=== PATIENT | male | born 1940 | race Two or more races ===

== ENCOUNTER → 2016-05-23 | Outpatient (REF) | payer MEDICARE, OTHER | LOC: M SMT 13:04 | PROVIDERS: ATTEND Nurse Practitioner Women's Health | DX: R97.20 Elevated prostate specific antigen [PSA] (principal); N40.1 Benign prostatic hyperplasia with lower urinary tract symptoms | CPT/HCPCS: 81001; 87086; G0463 ==

== ENCOUNTER → 2016-05-30 | Outpatient (CLI) | payer MEDICARE, OTHER ==
[~2016-05-30] MED LIST: ASPI81TA85 PO; CARV12.5 PO; GLIM4TAB PO; MACR100C3 PO; METF500T PO; PROTPAK PO; RAMI10CA PO; SIMV40TA2 PO; VITA-121 PO; WARF-58 PO
--- NOTE | 2016-05-30 12:29 | REP ---
TRANSRECTAL PROSTATE ULTRASOUND: 05/30/2016. Technique: Images from transrectal ultrasound provided to Dr. White of the Urology division for transrectal needle biopsy of the prostate. Clinical history: Elevated PSA. Findings. Enlarged prostate measures 7.8 x 6.1 x 5.7 cm corresponding to 142 ml. Seminal vesicles are symmetric and grossly intact. The prostate is enlarged and heterogeneous. It has calcifications and cystic changes scattered within and a nodule on the left side 1.2 x 0.9 cm. Technologist documents 12 needle passes by the urologist for biopsy. Impression: 1. Enlarged prostate with heterogeneous appearance, calcifications, cystic changes and a 1.2 x 0.9 cm nodule in the left side of the gland. Signed by Judd Mccracken MD 05/30/2016 04:43 P
== END | disposition home or self-care (01) ==
LOC: M SMT PRO 09:19
PROVIDERS: ATTEND Nurse Practitioner Women's Health
DX: C61 Malignant neoplasm of prostate (principal); N41.8 Other inflammatory diseases of prostate; N42.89 Other specified disorders of prostate
CPT/HCPCS: 55700; 76872; 76942; G0416

== ENCOUNTER 2016-06-21 10:28 | Emergency (ER) | payer MEDICARE, OTHER ==
[~2016-06-21] VITALS: Ht 168.9 cm; Wt 86.2 kg
[2016-06-21] MEDS ORDERED: CARV12.5 PO (10:48)
[2016-06-21] MEDS ORDERED: SIMV40TA2 PO (10:48)
[2016-06-21] MEDS ORDERED: METF500T PO (10:48)
[2016-06-21] MEDS ORDERED: WARF-58 PO (10:48)
[2016-06-21] MEDS ORDERED: ASPI81TA85 PO (10:48)
[2016-06-21] MEDS ORDERED: RAMI10CA PO (10:48)
[2016-06-21] MEDS ORDERED: VITA-121 PO (10:48)
[2016-06-21] MEDS ORDERED: PROTPAK PO (10:48)
[2016-06-21] MEDS ORDERED: GLIM4TAB PO (10:48)
[2016-06-21 11:34] LABS: BASO # 0.1 K/mm3 (0.0-0.2); BASO % 1.2 % (0.0-1.0); EOS # 0.2 K/mm3 (0.0-0.50); EOS % 2.9 % (0.0-3.0); LARGE UNSTAINED CELL # 0.1 K/mm3 (0.0-0.4); LARGE UNSTAINED CELL % 2.2 % (0.0-4.0); LYMPH # 1.4 K/mm3 (1.5-4.5); MEAN CORPUSCULAR HEMOGLOBIN 27.6 pg (27.0-33.0); MEAN CORPUSCULAR HGB CONC 33.3 g/dl (32.0-36.5); MONO # 0.3 K/mm3 (0.0-0.8); MONO % 5.1 % (0.0-5.0); NEUTROPHILS # 3.1 K/mm3 (1.8-7.7); NEUTROPHILS % 62.6 % (36.0-66.0); PLATELET COUNT, AUTOMATED 197 k/mm3 (150-450); RED CELL DISTRIBUTION WIDTH 14.3 % (11.5-14.5)
[2016-06-21 11:44] LABS: INR 2.42
[2016-06-21 11:54] LABS: ANION GAP 9 MEQ/L (8-16); BLOOD UREA NITROGEN 11 MG/DL (7-18); CALCIUM LEVEL 8.7 MG/DL (8.8-10.2); CARBON DIOXIDE LEVEL 27 MEQ/L (21-32); CHLORIDE LEVEL 107 MEQ/L (98-107); GLOMERULAR FILTRATION RATE > 60.0 (>42); GLUCOSE, FASTING 127 MG/DL (83-110); POTASSIUM SERUM 4.6 MEQ/L (3.5-5.1); SODIUM LEVEL 143 MEQ/L (136-145)
[2016-06-21] MEDS ORDERED: MACR100C3 PO (12:36)
[2016-06-21 12:44] VITALS: BP 170/79
[2016-06-21] MEDS ORDERED: NITROFURANTOIN (MACROBID) 100 MG CAP PO ONE (12:45)
== END 2016-06-21 12:45 | disposition home or self-care (01) ==
LOC: M ED 11:11
DX: N30.01 Acute cystitis with hematuria (principal)

== ENCOUNTER → 2016-07-30 | Outpatient (REF) | payer MEDICARE, OTHER | LOC: M SMT 17:07 | PROVIDERS: ATTEND Urology | DX: R31.9 Hematuria, unspecified (principal) | CPT/HCPCS: 81001; 87086; G0463 ==

== ENCOUNTER → 2016-12-11 | Outpatient (CLI) | payer MEDICARE, OTHER ==
[~2016-12-11] MED LIST changes: -MACR100C3 PO; +MACR100C43 PO; -METF500T PO; +METF500T13 PO
== END ==
LOC: M SMT 14:11
PROVIDERS: ATTEND Urology
DX: C61 Malignant neoplasm of prostate (principal)
CPT/HCPCS: 36415; 84153; G0463

== ENCOUNTER → 2017-09-23 | Outpatient (CLI) | payer MEDICARE, OTHER ==
[2017-09-23 14:06] LABS: PROSTATIC SPECIFIC AG MONITOR 3.85 NG/ML (< 4.0)
== END ==
LOC: M SMT 10:56
DX: C61 Malignant neoplasm of prostate (principal)
CPT/HCPCS: 84153

== ENCOUNTER → 2017-09-23 | Outpatient (REF) | payer MEDICARE, OTHER ==
[2017-09-23 13:45] LABS: APPEARANCE, URINE CLOUDY (CLEAR); BACTERIA, URINE AUTO 1+ (NEGATIVE); BILIRUBIN, URINE AUTO NEGATIVE (NEGATIVE); BLOOD, URINE BLOOD 3+ (NEGATIVE); COLOR, URINE AMBER (YELLOW); GLUCOSE, URINE (UA) AUTO NEGATIVE (NEGATIVE); KETONE, URINE AUTO NEGATIVE (NEGATIVE); LEUKOCYTE ESTERASE, URINE AUTO NEGATIVE (NEGATIVE); MUCUS, URINE SMALL (NEGATIVE); NITRITE, URINE AUTO NEGATIVE (NEGATIVE); PROTEIN, URINE AUTO 2+ mg/dL (NEGATIVE); RBC, URINE AUTO TNTC /HPF (0-3); SPECIFIC GRAVITY URINE AUTO 1.017 (1.002-1.035); SQUAMOUS EPITHELIAL CELL UR AU 0 /HPF (0-6); UROBILINOGEN, URINE AUTO 0.2 mg/dL (0.0-2.0); WBC, URINE AUTO 100 /HPF (0-3)
== END ==
LOC: M SMT 13:18
DX: R31.0 Gross hematuria (principal)
CPT/HCPCS: 81001; 84153

== ENCOUNTER → 2017-09-25 | Outpatient (CLI) | payer MEDICARE, OTHER ==
[2017-09-25 14:16] LABS: ANION GAP 8 MEQ/L (8-16); BLOOD UREA NITROGEN 18 MG/DL (7-18); CALCIUM LEVEL 9.1 MG/DL (8.8-10.2); CARBON DIOXIDE LEVEL 28 MEQ/L (21-32); CHLORIDE LEVEL 106 MEQ/L (98-107); CREATININE FOR GFR 1.19 MG/DL (0.70-1.30); GLOMERULAR FILTRATION RATE > 60.0 (>42); GLUCOSE, FASTING 149 MG/DL (70-100); SODIUM LEVEL 142 MEQ/L (136-145)
== END ==
LOC: M SMT 09:43
DX: R31.0 Gross hematuria (principal)
CPT/HCPCS: 80048

== ENCOUNTER → 2017-09-29 | Outpatient (CLI) | payer MEDICARE, OTHER ==
[~2017-09-29] MED LIST changes: -ASPI81TA85 PO; -CARV12.5 PO; -GLIM4TAB PO; +ISOVUE-370 76% 100ML VIAL (Q9967) As Ordered; -MACR100C43 PO; -METF500T13 PO; -PROTPAK PO; -RAMI10CA PO; -SIMV40TA2 PO; -VITA-121 PO; -WARF-58 PO
== END ==
LOC: M RAD 14:13
DX: R31.0 Gross hematuria (principal)
CPT/HCPCS: Q9967

== ENCOUNTER → 2017-11-05 | Outpatient (CLI) | payer MEDICARE, OTHER ==
[2017-11-05 10:54] LABS: HEMATOCRIT 40.4 % (42.0-52.0); MEAN CORPUSCULAR HEMOGLOBIN 26.9 pg (27.0-33.0); MEAN CORPUSCULAR HGB CONC 32.2 g/dl (32.0-36.5); MEAN CORPUSCULAR VOLUME 83.5 fl (80.0-96.0); PLATELET COUNT, AUTOMATED 179 10^3/uL (150-450); RED BLOOD COUNT 4.84 10^6/uL (4.30-6.10); RED CELL DISTRIBUTION WIDTH 15.2 % (11.5-14.5)
[2017-11-05 11:01] LABS: BACTERIA, URINE AUTO NEGATIVE (NEGATIVE); RBC, URINE AUTO TNTC /HPF (0-3); SQUAMOUS EPITHELIAL CELL UR AU 3 /HPF (0-6); WBC, URINE AUTO 4 /HPF (0-3)
[2017-11-05 11:15] LABS: ALBUMIN 3.3 GM/DL (3.2-5.2); ALBUMIN/GLOBULIN RATIO 1.03 (1.00-1.93); ALKALINE PHOSPHATASE 86 U/L (45-117); ALT/SGPT 19 U/L (12-78); ANION GAP 7 MEQ/L (8-16); AST/SGOT 13 U/L (7-37); BILIRUBIN,TOTAL 0.6 MG/DL (0.2-1.0); BLOOD UREA NITROGEN 12 MG/DL (7-18); CALCIUM LEVEL 8.9 MG/DL (8.8-10.2); CARBON DIOXIDE LEVEL 30 MEQ/L (21-32); CHLORIDE LEVEL 109 MEQ/L (98-107); CREATININE FOR GFR 1.04 MG/DL (0.70-1.30); GLOMERULAR FILTRATION RATE > 60.0 (>42); GLUCOSE, FASTING 95 MG/DL (70-100); INR 2.87; PROTHROMBIN TIME 30.7 SECONDS (12.1-14.4); SODIUM LEVEL 146 MEQ/L (136-145); TOTAL PROTEIN 6.5 GM/DL (6.4-8.2)
[2017-11-05 11:16] LABS: PARTIAL THROMBOPLASTIN TIME 40.2 SECONDS (25.4-37.6)
== END ==
LOC: M SMT 09:39
DX: R31.0 Gross hematuria (principal)
CPT/HCPCS: 80053

== ENCOUNTER 2018-01-13 07:05 | Observation (INO) | payer MEDICARE, OTHER ==
[2018-01-13] MEDS ORDERED: ceFAZolin 2 GM/D5W 50 ML IV BAG (J0690 PER 500MG) As Ordered ×2 (07:40)
[2018-01-13 07:55] LABS: BEDSIDE GLUCOSE 151 MG/DL (83-110)
[2018-01-13 08:03] LABS: INR 1.09; PROTHROMBIN TIME 14.2 SECONDS (12.1-14.4)
[2018-01-13 08:04] LABS: PARTIAL THROMBOPLASTIN TIME 30.3 SECONDS (25.4-37.6)
[2018-01-13] MEDS: LR 1,000 ML IV ×4 (08:15→15:02)
[2018-01-13] MEDS ORDERED: LIDOCAINE 2% 5ML JELLY UROJET As Ordered ×2 (08:35)
[2018-01-13] MEDS: CARVedilol 12.5 MG TAB PO ×4 (09:00→20:45)
[2018-01-13] MEDS ORDERED: ROCURONIUM BROMIDE 50 MG/5 ML VIAL As Ordered ×2 (09:15)
[2018-01-13] MEDS ORDERED: MIDAZOLAM INJ 2 MG/2 ML VIAL (J2250) As Ordered ×2 (09:15)
[2018-01-13] MEDS ORDERED: PROPOFOL 200 MG/20 ML VIAL As Ordered ×2 (09:15)
[2018-01-13] MEDS ORDERED: fentaNYL 100 MCG/2 ML INJECTION (J3010) As Ordered ×2 (09:15)
[2018-01-13] MEDS ORDERED: LIDOCAINE 2% INJ 100 MG/5 ML SDV (FOR ANES.) As Ordered ×2 (09:15)
[2018-01-13] MEDS ORDERED: dexameTHASONE 4 MG/ML 1ML VIAL (J1100) As Ordered ×2 (09:15)
[2018-01-13] MEDS ORDERED: ONDANSETRON 4MG/2ML VIAL (J2405) As Ordered ×2 (09:15)
[2018-01-13] MEDS ORDERED: GLYCOPYRROLATE INJ 0.2 MG/ML 2 ML VIAL As Ordered ×2 (09:16)
[2018-01-13] MEDS ORDERED: NEOSTIGMINE 10 MG/10 ML VIAL (J2710) As Ordered ×2 (09:16)
[2018-01-13] MEDS ORDERED: ONDANSETRON 4MG/2ML VIAL (J2405) IV ×2 (11:00)
[2018-01-13] MEDS ORDERED: fentaNYL 100 MCG/2 ML INJECTION (J3010) IV ×2 (11:00)
[2018-01-13] MEDS: CARVedilol 6.25 MG TAB PO ×2 (11:44)
[2018-01-13] MEDS: RAMIPRIL 5 MG CAP PO ×2 (11:44)
[2018-01-13 12:42] LABS: BEDSIDE GLUCOSE 167 MG/DL (83-110)
[2018-01-13] MEDS ORDERED: GLUCOSE 4 GM CHEW TABLET PO ×2 (14:30)
[2018-01-13] MEDS ORDERED: GLUCAGON FOR INJ 1 MG VIAL (J1610) SC ×2 (14:30)
[2018-01-13] MEDS ORDERED: DEXTROSE 50% 50 ML SYRINGE IV ×2 (14:30)
[2018-01-13] MEDS: VITAMIN D 1,000 INTERNATIONAL UNITS TABLET PO ×2 (16:01)
[2018-01-13] MEDS: FINASTERIDE 5 MG TAB PO ×2 (16:01)
[2018-01-13] MEDS: PANTOPRAZOLE 40MG TAB (PROTONIX) PO ×4 (16:01→20:44)
[2018-01-13] MEDS: TAMSULOSIN 0.4 MG CAP PO ×2 (16:01)
[2018-01-13] MEDS: HumaLOG INSULIN (NovoLOG) PER UNIT SC ×4 (17:31→20:45)
[2018-01-13] MEDS ORDERED: metFORMIN (GLUCOPHAGE) 500 MG TAB PO ×2 (18:00)
[2018-01-13] MEDS: SIMVASTATIN 40 MG TAB PO ×2 (20:45)
[2018-01-14] MEDS: HumaLOG INSULIN (NovoLOG) PER UNIT SC ×8 (07:30→20:43)
[2018-01-14] MEDS ORDERED: metFORMIN (GLUCOPHAGE) 500 MG TAB PO ×2 (08:00)
[2018-01-14] MEDS: VITAMIN D 1,000 INTERNATIONAL UNITS TABLET PO ×2 (08:42)
[2018-01-14] MEDS: FINASTERIDE 5 MG TAB PO ×2 (08:42)
[2018-01-14] MEDS: CARVedilol 12.5 MG TAB PO ×4 (08:42→20:48)
[2018-01-14] MEDS: RAMIPRIL 5 MG CAP PO ×2 (08:43)
[2018-01-14] MEDS: PANTOPRAZOLE 40MG TAB (PROTONIX) PO ×4 (08:43→20:48)
[2018-01-14] MEDS: TAMSULOSIN 0.4 MG CAP PO ×2 (08:43)
[2018-01-14] MEDS ORDERED: GLIMEPIRIDE 2 MG TAB PO ×2 (09:00)
[2018-01-14 09:11] LABS: HEMATOCRIT 38.4 % (42.0-52.0); HEMOGLOBIN 12.4 g/dl (13.5-17.5)
[2018-01-14] MEDS ORDERED: LIDOCAINE 2% 5ML JELLY UROJET As Ordered ×2 (16:01)
[2018-01-14] MEDS ORDERED: LIDOCAINE 2% INJ 100 MG/5 ML SDV (FOR ANES.) As Ordered ×2 (16:05)
[2018-01-14] MEDS ORDERED: PROPOFOL 200 MG/20 ML VIAL As Ordered ×2 (16:05)
[2018-01-14] MEDS ORDERED: ROCURONIUM BROMIDE 50 MG/5 ML VIAL As Ordered ×2 (16:05)
[2018-01-14] MEDS ORDERED: fentaNYL 250 MCG/5 ML INJECTION (J3010) As Ordered ×2 (16:06)
[2018-01-14] MEDS ORDERED: MIDAZOLAM INJ 2 MG/2 ML VIAL (J2250) As Ordered ×2 (16:06)
[2018-01-14 16:33] LABS: TYPE AND SCREEN 1 1
[2018-01-14] MEDS ORDERED: dexameTHASONE 4 MG/ML 1ML VIAL (J1100) As Ordered ×2 (16:58)
[2018-01-14] MEDS ORDERED: ONDANSETRON 4MG/2ML VIAL (J2405) As Ordered ×2 (16:58)
[2018-01-14] MEDS: ceFAZolin 2 GM/D5W 50 ML IV BAG (J0690 PER 500MG) As Ordered ×2 (17:29)
[2018-01-14] MEDS ORDERED: GLYCOPYRROLATE INJ 0.2 MG/ML 2 ML VIAL As Ordered ×4 (18:17)
[2018-01-14] MEDS ORDERED: NEOSTIGMINE 10 MG/10 ML VIAL (J2710) As Ordered ×2 (18:17)
[2018-01-14 18:48] LABS: BEDSIDE GLUCOSE 131 MG/DL (83-110)
[2018-01-14] MEDS ORDERED: fentaNYL 100 MCG/2 ML INJECTION (J3010) IV ×4 (19:00→20:45)
[2018-01-14] MEDS ORDERED: ONDANSETRON 4MG/2ML VIAL (J2405) IV ×4 (19:00→20:45)
[2018-01-14] MEDS ORDERED: MEPERIDINE INJ 25 MG/ML VIAL (J2175) IV ×4 (19:00→20:45)
[2018-01-14] MEDS ORDERED: METOCLOPRAMIDE INJ 10MG/2ML VIAL (J2765) IV ×4 (19:00→20:45)
[2018-01-14] MEDS ORDERED: PERCOCET 5MG/325MG TAB PO ×4 (19:00→20:45)
[2018-01-14] MEDS: LR 1,000 ML IV ×2 (20:43)
[2018-01-14] MEDS ORDERED: LR 1,000 ML IV ×2 (20:45)
[2018-01-14] MEDS: SIMVASTATIN 40 MG TAB PO ×2 (20:48)
[2018-01-14] MEDS: ASPIRIN 81 MG ENTERIC TAB PO ×2 (22:17)
[2018-01-15 06:42] LABS: BASO % 0.1 % (0.0-1.0); HEMATOCRIT 36.7 % (42.0-52.0); HEMOGLOBIN 11.8 g/dl (13.5-17.5); IMMATURE GRANULOCYTE % 0.6 % (0-3.0); LYMPH # 0.5 10^3/uL (1.5-4.5); LYMPH % 6.7 % (24.0-44.0); MEAN CORPUSCULAR HEMOGLOBIN 26.7 pg (27.0-33.0); MEAN CORPUSCULAR HGB CONC 32.2 g/dl (32.0-36.5); MONO # 0.2 10^3/uL (0.0-0.8); MONO % 3.2 % (0.0-5.0); NEUTROPHILS # 6.2 10^3/uL (1.8-7.7); NEUTROPHILS % 89.4 % (36.0-66.0); PLATELET COUNT, AUTOMATED 145 10^3/uL (150-450); RED BLOOD COUNT 4.42 10^6/uL (4.30-6.10); RED CELL DISTRIBUTION WIDTH 15.1 % (11.5-14.5); WHITE BLOOD COUNT 6.9 10^3/uL (4.0-10.0)
[2018-01-15 06:57] LABS: INR 1.07
[2018-01-15 07:03] LABS: ANION GAP 6 MEQ/L (8-16); BLOOD UREA NITROGEN 20 MG/DL (7-18); CALCIUM LEVEL 8.6 MG/DL (8.8-10.2); CARBON DIOXIDE LEVEL 29 MEQ/L (21-32); CHLORIDE LEVEL 107 MEQ/L (98-107); GLOMERULAR FILTRATION RATE > 60.0 (>42); GLUCOSE, FASTING 180 MG/DL (70-100); MAGNESIUM LEVEL 1.9 MG/DL (1.8-2.4); POTASSIUM SERUM 4.5 MEQ/L (3.5-5.1); SODIUM LEVEL 142 MEQ/L (136-145)
[2018-01-15] MEDS: FINASTERIDE 5 MG TAB PO ×2 (08:18)
[2018-01-15] MEDS: PANTOPRAZOLE 40MG TAB (PROTONIX) PO ×4 (08:18→22:06)
[2018-01-15] MEDS: CARVedilol 12.5 MG TAB PO ×4 (08:18→22:05)
[2018-01-15] MEDS: RAMIPRIL 5 MG CAP PO ×2 (08:18)
[2018-01-15] MEDS: TAMSULOSIN 0.4 MG CAP PO ×2 (08:18)
[2018-01-15] MEDS: VITAMIN D 1,000 INTERNATIONAL UNITS TABLET PO ×2 (08:18)
[2018-01-15] MEDS: ASPIRIN 81 MG ENTERIC TAB PO ×2 (08:19)
[2018-01-15] MEDS: HumaLOG INSULIN (NovoLOG) PER UNIT SC ×8 (08:19→22:06)
[2018-01-15 11:42] LABS: BEDSIDE GLUCOSE 201 MG/DL (83-110)
[2018-01-15 14:25] LABS: BEDSIDE GLUCOSE 256 MG/DL (83-110)
[2018-01-15 14:26] LABS: BEDSIDE GLUCOSE 176 MG/DL (83-110)
[2018-01-15 14:26] LABS: BEDSIDE GLUCOSE 153 MG/DL (83-110)
[2018-01-15 14:26] LABS: BEDSIDE GLUCOSE 314 MG/DL (83-110)
[2018-01-15 16:34] LABS: BEDSIDE GLUCOSE 188 MG/DL (83-110)
[2018-01-15 20:10] LABS: BEDSIDE GLUCOSE 265 MG/DL (83-110)
[2018-01-15] MEDS: SIMVASTATIN 40 MG TAB PO ×2 (22:06)
[2018-01-16] MEDS: RAMIPRIL 5 MG CAP PO ×2 (05:51)
[2018-01-16 06:17] LABS: BASO % 0.1 % (0.0-1.0); EOS % 0.1 % (0.0-3.0); HEMATOCRIT 37.1 % (42.0-52.0); HEMOGLOBIN 11.9 g/dl (13.5-17.5); IMMATURE GRANULOCYTE % 0.7 % (0-3.0); LYMPH # 0.7 10^3/uL (1.5-4.5); LYMPH % 9.9 % (24.0-44.0); MEAN CORPUSCULAR HEMOGLOBIN 26.8 pg (27.0-33.0); MEAN CORPUSCULAR HGB CONC 32.1 g/dl (32.0-36.5); MEAN CORPUSCULAR VOLUME 83.6 fl (80.0-96.0); MONO # 0.5 10^3/uL (0.0-0.8); MONO % 7.7 % (0.0-5.0); NEUTROPHILS # 5.6 10^3/uL (1.8-7.7); NEUTROPHILS % 81.5 % (36.0-66.0); PLATELET COUNT, AUTOMATED 144 10^3/uL (150-450); RED BLOOD COUNT 4.44 10^6/uL (4.30-6.10); RED CELL DISTRIBUTION WIDTH 15.2 % (11.5-14.5); WHITE BLOOD COUNT 6.9 10^3/uL (4.0-10.0)
[2018-01-16 06:27] LABS: INR 1.11; PROTHROMBIN TIME 14.5 SECONDS (12.1-14.4)
[2018-01-16 06:42] LABS: ANION GAP 8 MEQ/L (8-16); BLOOD UREA NITROGEN 25 MG/DL (7-18); CALCIUM LEVEL 8.7 MG/DL (8.8-10.2); CARBON DIOXIDE LEVEL 29 MEQ/L (21-32); CHLORIDE LEVEL 106 MEQ/L (98-107); CREATININE FOR GFR 1.04 MG/DL (0.70-1.30); GLOMERULAR FILTRATION RATE > 60.0 (>42); GLUCOSE, FASTING 150 MG/DL (70-100); MAGNESIUM LEVEL 1.8 MG/DL (1.8-2.4); POTASSIUM SERUM 4.2 MEQ/L (3.5-5.1); SODIUM LEVEL 143 MEQ/L (136-145)
[2018-01-16] MEDS: PANTOPRAZOLE 40MG TAB (PROTONIX) PO ×4 (09:14→20:38)
[2018-01-16] MEDS: ASPIRIN 81 MG ENTERIC TAB PO ×2 (09:14)
[2018-01-16] MEDS: FINASTERIDE 5 MG TAB PO ×2 (09:14)
[2018-01-16] MEDS: VITAMIN D 1,000 INTERNATIONAL UNITS TABLET PO ×2 (09:14)
[2018-01-16] MEDS: TAMSULOSIN 0.4 MG CAP PO ×2 (09:14)
[2018-01-16] MEDS: HumaLOG INSULIN (NovoLOG) PER UNIT SC ×8 (09:25→20:39)
[2018-01-16] MEDS: CARVedilol 12.5 MG TAB PO ×4 (09:26→20:38)
[2018-01-16 12:19] LABS: BEDSIDE GLUCOSE 143 MG/DL (83-110)
[2018-01-16] MEDS: ACETAMINOPHEN TAB 650MG DOSE (2X325MG) PO ×2 (14:21)
[2018-01-16 16:33] LABS: KETONE, URINE AUTO RFX NEGATIVE (NEGATIVE); MUCUS, URINE RFX SMALL (NEGATIVE); NITRITE, URINE AUTO RFX NEGATIVE (NEGATIVE); RBC, URINE AUTO RFX TNTC /HPF (0-3); SPECIFIC GRAVITY UR AUTO RFX 1.014 (1.002-1.035); SQUAM EPITHELIAL CELL UR AURFX 1 /HPF (0-6)
[2018-01-16 16:36] LABS: LEUKOCYTE ESTERASE UR AUTO RFX 2+ (NEGATIVE); WBC, URINE AUTO RFX TNTC /HPF (0-3)
[2018-01-16 17:02] LABS: BEDSIDE GLUCOSE 149 MG/DL (83-110)
[2018-01-16] MEDS: WARFARIN SOD 3 MG TAB PO ×2 (18:08)
[2018-01-16] MEDS ORDERED: IPRATROPIUM 0.5MG/ALBUTEROL 2.5MG INH SOL UD 3ML (DUONEB)(J7620) NEB ×2 (18:30)
[2018-01-16] MEDS: cefTRIAXone SOD 1 GM in D5W MINI-BAG PLUS 50 ML IV (18:36)
[2018-01-16] MEDS: SIMVASTATIN 40 MG TAB PO ×2 (20:38)
[2018-01-16] MEDS: LEVEMIR (INSULIN DETEMIR) 1 UNITS/0.01ML SC ×2 (20:40)
[2018-01-17 06:33] LABS: BASO % 0.5 % (0.0-1.0); EOS # 0.1 10^3/uL (0.0-0.50); EOS % 0.9 % (0.0-3.0); HEMOGLOBIN 10.8 g/dl (13.5-17.5); IMMATURE GRANULOCYTE % 0.6 % (0-3.0); MEAN CORPUSCULAR HEMOGLOBIN 26.5 pg (27.0-33.0); MEAN CORPUSCULAR HGB CONC 31.8 g/dl (32.0-36.5); MEAN CORPUSCULAR VOLUME 83.3 fl (80.0-96.0); MONO # 0.8 10^3/uL (0.0-0.8); MONO % 12.4 % (0.0-5.0); NEUTROPHILS # 4.7 10^3/uL (1.8-7.7); NEUTROPHILS % 70.6 % (36.0-66.0); PLATELET COUNT, AUTOMATED 152 10^3/uL (150-450); RED BLOOD COUNT 4.08 10^6/uL (4.30-6.10); RED CELL DISTRIBUTION WIDTH 15.1 % (11.5-14.5); WHITE BLOOD COUNT 6.6 10^3/uL (4.0-10.0)
[2018-01-17 06:49] LABS: INR 1.23; PROTHROMBIN TIME 15.7 SECONDS (12.1-14.4)
[2018-01-17 07:11] LABS: ANION GAP 7 MEQ/L (8-16); BLOOD UREA NITROGEN 19 MG/DL (7-18); CALCIUM LEVEL 7.8 MG/DL (8.8-10.2); CARBON DIOXIDE LEVEL 28 MEQ/L (21-32); CHLORIDE LEVEL 104 MEQ/L (98-107); CREATININE FOR GFR 1.12 MG/DL (0.70-1.30); GLOMERULAR FILTRATION RATE > 60.0 (>42); GLUCOSE, FASTING 125 MG/DL (70-100); MAGNESIUM LEVEL 1.4 MG/DL (1.8-2.4); POTASSIUM SERUM 3.7 MEQ/L (3.5-5.1); SODIUM LEVEL 139 MEQ/L (136-145)
[2018-01-17] MEDS: HumaLOG INSULIN (NovoLOG) PER UNIT SC ×6 (07:30→18:05)
[2018-01-17] MEDS: PANTOPRAZOLE 40MG TAB (PROTONIX) PO ×2 (09:53)
[2018-01-17] MEDS: TAMSULOSIN 0.4 MG CAP PO ×2 (09:53)
[2018-01-17] MEDS: VITAMIN D 1,000 INTERNATIONAL UNITS TABLET PO ×2 (09:53)
[2018-01-17] MEDS: FINASTERIDE 5 MG TAB PO ×2 (09:53)
[2018-01-17] MEDS: CARVedilol 12.5 MG TAB PO ×2 (09:53)
[2018-01-17] MEDS: RAMIPRIL 5 MG CAP PO ×2 (09:53)
[2018-01-17] MEDS: ASPIRIN 81 MG ENTERIC TAB PO ×2 (09:53)
[2018-01-17] MEDS: ACETAMINOPHEN TAB 650MG DOSE (2X325MG) PO ×2 (09:55)
[2018-01-17 12:42] LABS: BEDSIDE GLUCOSE 183 MG/DL (83-110)
[2018-01-17 12:42] LABS: BEDSIDE GLUCOSE 118 MG/DL (83-110)
[2018-01-17 17:33] LABS: BEDSIDE GLUCOSE 202 MG/DL (83-110)
[2018-01-17] MEDS: WARFARIN SOD 3 MG TAB PO ×2 (18:05)
[2018-01-19 09:18] LABS: BEDSIDE GLUCOSE 137 MG/DL (83-110)
== END 2018-01-17 18:54 | disposition home or self-care (01) ==
LOC: M SDC 07:05 → M MSPAV 12:30 → M SDC 12:30 → M MSPAV 12:30
DX: C61 Malignant neoplasm of prostate (principal); C67.2 Malignant neoplasm of lateral wall of bladder; R50.82 Postprocedural fever; R39.89 Other symptoms and signs involving the genitourinary system; I25.10 Atherosclerotic heart disease of native coronary artery without angina pectoris; Z79.01 Long term (current) use of anticoagulants; I10 Essential (primary) hypertension; E78.5 Hyperlipidemia, unspecified; I73.9 Peripheral vascular disease, unspecified; K21.9 Gastro-esophageal reflux disease without esophagitis; E11.59 Type 2 diabetes mellitus with other circulatory complications; Z98.61 Coronary angioplasty status; Z87.891 Personal history of nicotine dependence; Z98.84 Bariatric surgery status; Z79.82 Long term (current) use of aspirin; Z79.899 Other long term (current) drug therapy
CPT/HCPCS: 52240

== ENCOUNTER → 2018-01-20 | Outpatient (REF) | payer MEDICARE, OTHER ==
[2018-01-20 12:33] LABS: INR 1.28; PROTHROMBIN TIME 16.2 SECONDS (12.1-14.4)
== END ==
LOC: M SHH 12:11
DX: Z51.81 Encounter for therapeutic drug level monitoring (principal); Z79.01 Long term (current) use of anticoagulants
CPT/HCPCS: 85610

== ENCOUNTER → 2018-02-03 | Outpatient (CLI) | payer MEDICARE, OTHER ==
[2018-02-03 14:34] LABS: HEMATOCRIT 37.2 % (42.0-52.0); HEMOGLOBIN 11.8 g/dl (13.5-17.5); MEAN CORPUSCULAR HEMOGLOBIN 26.2 pg (27.0-33.0); MEAN CORPUSCULAR HGB CONC 31.7 g/dl (32.0-36.5); MEAN CORPUSCULAR VOLUME 82.5 fl (80.0-96.0); PLATELET COUNT, AUTOMATED 280 10^3/uL (150-450); RED BLOOD COUNT 4.51 10^6/uL (4.30-6.10); RED CELL DISTRIBUTION WIDTH 14.8 % (11.5-14.5); WHITE BLOOD COUNT 6.4 10^3/uL (4.0-10.0)
[2018-02-03 14:45] LABS: ALBUMIN 2.9 GM/DL (3.2-5.2); ALBUMIN/GLOBULIN RATIO 0.83 (1.00-1.93); ALKALINE PHOSPHATASE 90 U/L (45-117); ALT/SGPT 15 U/L (12-78); ANION GAP 6 MEQ/L (8-16); AST/SGOT 14 U/L (7-37); BILIRUBIN,TOTAL 0.4 MG/DL (0.2-1.0); BLOOD UREA NITROGEN 13 MG/DL (7-18); CALCIUM LEVEL 9.1 MG/DL (8.8-10.2); CARBON DIOXIDE LEVEL 29 MEQ/L (21-32); CHLORIDE LEVEL 109 MEQ/L (98-107); CREATININE FOR GFR 1.15 MG/DL (0.70-1.30); GLOMERULAR FILTRATION RATE > 60.0 (>42); GLUCOSE, FASTING 121 MG/DL (70-100); POTASSIUM SERUM 5.1 MEQ/L (3.5-5.1); SODIUM LEVEL 144 MEQ/L (136-145); TOTAL PROTEIN 6.4 GM/DL (6.4-8.2)
[2018-02-03 15:07] LABS: APPEARANCE, URINE HAZY (CLEAR); BACTERIA, URINE AUTO NEGATIVE (NEGATIVE); BILIRUBIN, URINE AUTO NEGATIVE (NEGATIVE); BLOOD, URINE BLOOD 2+ (NEGATIVE); COLOR, URINE YELLOW (YELLOW); GLUCOSE, URINE (UA) AUTO NEGATIVE (NEGATIVE); KETONE, URINE AUTO NEGATIVE (NEGATIVE); LEUKOCYTE ESTERASE, URINE AUTO 3+ (NEGATIVE); MUCUS, URINE SMALL (NEGATIVE); NITRITE, URINE AUTO NEGATIVE (NEGATIVE); PROTEIN, URINE AUTO 2+ mg/dL (NEGATIVE); RBC, URINE AUTO 52 /HPF (0-3); SQUAMOUS EPITHELIAL CELL UR AU 0 /HPF (0-6); UROBILINOGEN, URINE AUTO 0.2 mg/dL (0.0-2.0); WBC, URINE AUTO 163 /HPF (0-3); YEAST LIKE CELL URINE AUTO MODERATE
== END ==
LOC: M SMT 10:21
DX: C67.2 Malignant neoplasm of lateral wall of bladder (principal)
CPT/HCPCS: 80053

== ENCOUNTER → 2018-02-15 | Outpatient (REF) | payer MEDICARE, OTHER ==
[2018-02-15 13:43] LABS: AMORPHOUS SEDIMENT SMALL (NEGATIVE); APPEARANCE, URINE HAZY (CLEAR); BACTERIA, URINE AUTO 1+ (NEGATIVE); BILIRUBIN, URINE AUTO NEGATIVE (NEGATIVE); BLOOD, URINE BLOOD 2+ (NEGATIVE); COLOR, URINE YELLOW (YELLOW); GLUCOSE, URINE (UA) AUTO NEGATIVE (NEGATIVE); KETONE, URINE AUTO NEGATIVE (NEGATIVE); LEUKOCYTE ESTERASE, URINE AUTO 2+ (NEGATIVE); MUCUS, URINE SMALL (NEGATIVE); NITRITE, URINE AUTO NEGATIVE (NEGATIVE); PROTEIN, URINE AUTO 2+ mg/dL (NEGATIVE); RBC, URINE AUTO 95 /HPF (0-3); SPECIFIC GRAVITY URINE AUTO 1.015 (1.002-1.035); SQUAMOUS EPITHELIAL CELL UR AU 0 /HPF (0-6); UROBILINOGEN, URINE AUTO 0.2 mg/dL (0.0-2.0); WBC, URINE AUTO TNTC /HPF (0-3); YEAST LIKE CELL URINE AUTO SMALL
== END ==
LOC: M SMT 12:57
DX: C67.2 Malignant neoplasm of lateral wall of bladder (principal)
CPT/HCPCS: 81001

== ENCOUNTER → 2018-03-01 | Outpatient (REF) | payer MEDICARE, OTHER ==
[2018-03-01 13:36] LABS: AMORPHOUS SEDIMENT SMALL (NEGATIVE); BACTERIA, URINE AUTO 1+ (NEGATIVE); MUCUS, URINE SMALL (NEGATIVE); RBC, URINE AUTO 26 /HPF (0-3); SQUAMOUS EPITHELIAL CELL UR AU 0 /HPF (0-6); WBC, URINE AUTO 40 /HPF (0-3)
== END ==
LOC: M SMT 13:03
DX: C67.2 Malignant neoplasm of lateral wall of bladder (principal)
CPT/HCPCS: 81015

== ENCOUNTER → 2018-03-02 | Outpatient (REF) | payer MEDICARE, OTHER ==
[2018-03-02 13:41] LABS: AMORPHOUS SEDIMENT SMALL (NEGATIVE); APPEARANCE, URINE CLEAR (CLEAR); BACTERIA, URINE AUTO 1+ (NEGATIVE); BILIRUBIN, URINE AUTO NEGATIVE (NEGATIVE); BLOOD, URINE BLOOD 2+ (NEGATIVE); COLOR, URINE YELLOW (YELLOW); GLUCOSE, URINE (UA) AUTO NEGATIVE (NEGATIVE); KETONE, URINE AUTO NEGATIVE (NEGATIVE); LEUKOCYTE ESTERASE, URINE AUTO 2+ (NEGATIVE); MUCUS, URINE SMALL (NEGATIVE); NITRITE, URINE AUTO NEGATIVE (NEGATIVE); PROTEIN, URINE AUTO 2+ mg/dL (NEGATIVE); RBC, URINE AUTO 83 /HPF (0-3); SPECIFIC GRAVITY URINE AUTO 1.016 (1.002-1.035); SQUAMOUS EPITHELIAL CELL UR AU 0 /HPF (0-6); UROBILINOGEN, URINE AUTO 0.2 mg/dL (0.0-2.0); WBC, URINE AUTO 77 /HPF (0-3)
== END ==
LOC: M SMT 13:12
DX: N39.0 Urinary tract infection, site not specified (principal)
CPT/HCPCS: 81001

== ENCOUNTER → 2018-03-10 | Outpatient (REF) | payer MEDICARE, OTHER ==
[2018-03-10 13:24] LABS: APPEARANCE, URINE CLEAR (CLEAR); BACTERIA, URINE AUTO NEGATIVE (NEGATIVE); BILIRUBIN, URINE AUTO NEGATIVE (NEGATIVE); BLOOD, URINE BLOOD 2+ (NEGATIVE); COLOR, URINE STRAW (YELLOW); GLUCOSE, URINE (UA) AUTO NEGATIVE (NEGATIVE); KETONE, URINE AUTO NEGATIVE (NEGATIVE); LEUKOCYTE ESTERASE, URINE AUTO TRACE (NEGATIVE); MUCUS, URINE SMALL (NEGATIVE); NITRITE, URINE AUTO NEGATIVE (NEGATIVE); PROTEIN, URINE AUTO 2+ mg/dL (NEGATIVE); RBC, URINE AUTO 2 /HPF (0-3); SPECIFIC GRAVITY URINE AUTO 1.006 (1.002-1.035); SQUAMOUS EPITHELIAL CELL UR AU 0 /HPF (0-6); UROBILINOGEN, URINE AUTO 0.2 mg/dL (0.0-2.0); WBC, URINE AUTO 6 /HPF (0-3)
== END ==
LOC: M SMT 12:56
DX: R31.29 Other microscopic hematuria (principal)
CPT/HCPCS: 81001

== ENCOUNTER → 2018-05-24 | Outpatient (REF) | payer MEDICARE, OTHER ==
[~2018-05-24] MED LIST changes: +ASPI81TA85 PO; +CARV12.5 PO; +FLOM0.4C39 PO; +GLIM4TAB PO; -ISOVUE-370 76% 100ML VIAL (Q9967) As Ordered; +MACR100C43 PO; +METF500T13 PO; +PIOG1TAB36 PO; +PROS5TAB PO; +PROTPAK PO; +RAMI1CAP26 PO; +SIMV40TA2 PO; +VITA-121 PO; +WARF-58 PO
== END ==
LOC: M SMT 13:16
PROVIDERS: ATTEND Urology
DX: C67.9 Malignant neoplasm of bladder, unspecified (principal)

== ENCOUNTER → 2018-06-17 | Outpatient (CLI) | payer MEDICARE, OTHER ==
[2018-06-17 10:39] LABS: APPEARANCE, URINE CLEAR (CLEAR); BACTERIA, URINE AUTO NEGATIVE (NEGATIVE); BILIRUBIN, URINE AUTO NEGATIVE (NEGATIVE); BLOOD, URINE BLOOD NEGATIVE (NEGATIVE); COLOR, URINE STRAW (YELLOW); GLUCOSE, URINE (UA) AUTO NEGATIVE (NEGATIVE); KETONE, URINE AUTO NEGATIVE (NEGATIVE); LEUKOCYTE ESTERASE, URINE AUTO NEGATIVE (NEGATIVE); NITRITE, URINE AUTO NEGATIVE (NEGATIVE); PROTEIN, URINE AUTO 2+ mg/dL (NEGATIVE); RBC, URINE AUTO 1 /HPF (0-3); SPECIFIC GRAVITY URINE AUTO 1.008 (1.002-1.035); SQUAMOUS EPITHELIAL CELL UR AU 0 /HPF (0-6); UROBILINOGEN, URINE AUTO 0.2 mg/dL (0.0-2.0); WBC, URINE AUTO 0 /HPF (0-3)
[2018-06-17 10:41] LABS: HEMATOCRIT 40.1 % (42.0-52.0); HEMOGLOBIN 12.2 g/dl (13.5-17.5); MEAN CORPUSCULAR HEMOGLOBIN 23.8 pg (27.0-33.0); MEAN CORPUSCULAR HGB CONC 30.4 g/dl (32.0-36.5); MEAN CORPUSCULAR VOLUME 78.2 fl (80.0-96.0); PLATELET COUNT, AUTOMATED 202 10^3/uL (150-450); RED BLOOD COUNT 5.13 10^6/uL (4.30-6.10); WHITE BLOOD COUNT 5.5 10^3/uL (4.0-10.0)
[2018-06-17 11:04] LABS: ALBUMIN 3.4 GM/DL (3.2-5.2); ALT/SGPT 16 U/L (12-78); BILIRUBIN,TOTAL 0.5 MG/DL (0.2-1.0); BLOOD UREA NITROGEN 11 MG/DL (7-18); CALCIUM LEVEL 8.6 MG/DL (8.8-10.2); CARBON DIOXIDE LEVEL 26 MEQ/L (21-32); CHLORIDE LEVEL 111 MEQ/L (98-107); CREATININE FOR GFR 0.99 MG/DL (0.70-1.30); GLOMERULAR FILTRATION RATE > 60.0 (>42); GLUCOSE, FASTING 111 MG/DL (70-100); POTASSIUM SERUM 4.4 MEQ/L (3.5-5.1); SODIUM LEVEL 143 MEQ/L (136-145); TOTAL PROTEIN 6.5 GM/DL (6.4-8.2)
== END ==
LOC: M SMT 08:12
PROVIDERS: ATTEND Urology
DX: C67.9 Malignant neoplasm of bladder, unspecified (principal)

== ENCOUNTER → 2018-08-09 | Outpatient (REF) | payer MEDICARE, OTHER | LOC: M SMT 13:01 | PROVIDERS: ATTEND Urology | DX: C67.9 Malignant neoplasm of bladder, unspecified (principal) ==

== ENCOUNTER → 2018-10-18 | Outpatient (CLI) | payer MEDICARE, OTHER ==
--- NOTE | 2018-10-18 10:13 | REP ---
Bilateral lower extremity arterial duplex ultrasound: The the patient has a known left femoral artery to the right femoral artery bypass graft . Right lower extremity: The the ABIs could not be obtained. There is a right inguinal lymph node measuring 1.7 x 1.3 x 1.7 cm, upper normal size. Peak Systolic Phasicity Velocity PAVING CREW FOREMAN - biphasic Profunda 37.7 monophasic SFA prox 70.2 biphasic SFA mid 89.1 biphasic SFA dist 115.4 biphasic Pop 48 point biphasic MARIA M prox 49 points biphasic Tib/P tr 54.2 biphasic PARTY HOST/HOSTESS pr 53.8 biphasic PARTY HOST/HOSTESS dst 78.1 biphasic MARIA M dst 103.5 biphasic Left lower extremity: The the ABIs could not be obtained. Peak Systolic Phasicity Velocity PAVING CREW FOREMAN 100.6 biphasic Profunda 122.6 monophasic SFA prox 73.7 biphasic SFA mid 114.2 biphasic SFA dist 91.1 biphasic Pop 74.4 biphasic MARIA M prox 52.7 biphasic Tib/P tr 56.2 biphasic PARTY HOST/HOSTESS pr 64.3 biphasic PARTY HOST/HOSTESS dst 94 points biphasic MARIA M dst 49.6 biphasic The left to right femoral artery bypass graft peak flow velocities measure: At the left anastomosis: 236.0 cm/sec with biphasic waveforms. At the right anastomosis: 101.6 cm/sec with l biphasic wave forms. At the mid graft: 129.4 cm/sec with biphasic waveforms. There is moderate to severe atheromatous plaque bilaterally. There is stenosis on the right at the distal SFA and distal PARTY HOST/HOSTESS. There is stenosis on the left at the mid SFA. Electronically Signed by Cristóbal Patton MD 10/18/2018 10:04 A
== END ==
LOC: M RAD 07:49
PROVIDERS: ATTEND Surgery Vascular Surgery
DX: I70.0 Atherosclerosis of aorta (principal); I77.1 Stricture of artery; I73.9 Peripheral vascular disease, unspecified

== ENCOUNTER → 2018-11-10 | Outpatient (CLI) | payer MEDICARE, OTHER ==
[~2018-11-10] MED LIST changes: +BUPIVACAINE HCL 0.5% 10 ML VIAL As Ordered ONE; +HEPARIN 1,000 UNITS/ML 10ML VIAL (FOR RADIOLOGY& DIALYSIS ONLY) As Ordered ONE; +ISOVUE-300 61% 50ML VIAL (Q9967) As Ordered ONE; +LIDOCAINE 2% MDV 20 ML VIAL As Ordered ONE; +MIDAZOLAM INJ 2 MG/2 ML VIAL (J2250) As Ordered ONE; +WARF-23 PO; +diphenhydrAMINE INJ 50MG/ML VIAL (J1200) As Ordered ONE; +fentaNYL 100 MCG/2 ML INJECTION (J3010) As Ordered ONE
[2018-11-10 08:42] LABS: HEMATOCRIT 38.3 % (42.0-52.0); HEMOGLOBIN 11.8 g/dl (13.5-17.5); MEAN CORPUSCULAR HEMOGLOBIN 24.4 pg (27.0-33.0); MEAN CORPUSCULAR HGB CONC 30.8 g/dl (32.0-36.5); MEAN CORPUSCULAR VOLUME 79.3 fl (80.0-96.0); RED BLOOD COUNT 4.83 10^6/uL (4.30-6.10); WHITE BLOOD COUNT 5.3 10^3/uL (4.0-10.0)
[2018-11-10 08:43] LABS: PLATELET COUNT, AUTOMATED 176 10^3/uL (150-450)
[2018-11-10 08:57] LABS: INR 3.03; PROTHROMBIN TIME 31.3 SECONDS (11.8-14.0)
[2018-11-10 09:21] LABS: BLOOD UREA NITROGEN 13 MG/DL (7-18); CALCIUM LEVEL 8.5 MG/DL (8.8-10.2); CARBON DIOXIDE LEVEL 27 MEQ/L (21-32); CHLORIDE LEVEL 111 MEQ/L (98-107); CREATININE FOR GFR 1.02 MG/DL (0.70-1.30); GLOMERULAR FILTRATION RATE > 60.0 (>42); GLUCOSE, FASTING 105 MG/DL (70-100); POTASSIUM SERUM 4.6 MEQ/L (3.5-5.1); SODIUM LEVEL 145 MEQ/L (136-145)
[2018-11-10 13:45] VITALS: BP 148/65
--- NOTE | 2018-11-17 11:50 | REPIR ---
DATE OF PROCEDURE: 11/10/2018 ATTENDING SURGEON: Dr. Ofe Moralez ASSISTANTS: Sylvie Beckham and Jaylyn Quiroga. PREOPERATIVE DIAGNOSIS: Pflj-ns-uxika femoral-femoral bypass graft with ultrasound showing stenosis at the anastomosis. POSTOPERATIVE DIAGNOSIS: Yflx-dc-hqjxv femoral-femoral bypass graft with ultrasound showing stenosis at the anastomosis. PROCEDURE: Ultrasound-guided right limb of the fwsy-dt-reazq femoral-femoral bypass graft cannulation, selective aortic catheter placement with angiogram. INDICATION: The patient is a 78-year-old male with a previous bomq-xh-mceje femoral-femoral bypass graft with ultrasound showing stenosis in the anastomosis. The patient will undergo an angiogram with possible angioplasty stent and/or atherectomy. Risks, benefits, and alternative treatment options were discussed with the patient. ANESTHESIA: Local with 10 mL of 2% lidocaine mixed 0.5% Marcaine. FLUOROSCOPY TIME: 2.3 minutes. CONTRAST: 4 mL of Isovue 300. HEPARIN: None. COMPLICATIONS: None. DRAINS: None. SPECIMENS: None: IMPLANTS: None. DESCRIPTION OF PROCEDURE: The patient was taken to the angiography suite, placed supine on the angiography room table, then prepped and draped in a standard surgical fashion. An ultrasound was used to guide cannulation of the right limb of the femoral-femoral bypass graft. A catheter was advanced through the bypass graft into the aorta and an aortogram with runoff was performed. This showed no stenosis in either anastomosis and no intervention required. The catheters and wires were removed and manual compression applied at the puncture site for hemostasis. Dressings were then applied. The patient tolerated procedure well. All instrument, sponge, and needle counts were correct at the end of the case. There were no complications. Dr. Moralez was present for and directed the entire case. The patient was transferred to the holding area and subsequently discharged in stable condition.
== END ==
LOC: M IRPRO 07:41
PROVIDERS: ATTEND Surgery Vascular Surgery
DX: T82.857A Stenosis of other cardiac prosthetic devices, implants and grafts, initial encounter (principal); I73.9 Peripheral vascular disease, unspecified; X58.XXXA Exposure to other specified factors, initial encounter; Y93.9 Activity, unspecified; Y92.9 Unspecified place or not applicable; Y99.9 Unspecified external cause status
CPT/HCPCS: 36200; 75630; 80048; 85027; 85610; C1769; C1887; C1894; J1200; Q9967

== ENCOUNTER → 2018-11-15 | Outpatient (REF) | payer MEDICARE, OTHER ==
[~2018-11-15] MED LIST changes: -BUPIVACAINE HCL 0.5% 10 ML VIAL As Ordered ONE; -HEPARIN 1,000 UNITS/ML 10ML VIAL (FOR RADIOLOGY& DIALYSIS ONLY) As Ordered ONE; -ISOVUE-300 61% 50ML VIAL (Q9967) As Ordered ONE; -LIDOCAINE 2% MDV 20 ML VIAL As Ordered ONE; -MIDAZOLAM INJ 2 MG/2 ML VIAL (J2250) As Ordered ONE; -diphenhydrAMINE INJ 50MG/ML VIAL (J1200) As Ordered ONE; -fentaNYL 100 MCG/2 ML INJECTION (J3010) As Ordered ONE
== END ==
LOC: M SMT 13:18
PROVIDERS: ATTEND Urology
DX: C67.9 Malignant neoplasm of bladder, unspecified (principal)

== ENCOUNTER → 2019-02-21 | Outpatient (REF) | payer MEDICARE, OTHER ==
[~2019-02-21] MED LIST changes: -GLIM4TAB PO; +GLIM4TAB3 PO; -SIMV40TA2 PO; +SIMV40TA20 PO
== END ==
LOC: M SMT 13:39
PROVIDERS: ATTEND Urology
DX: C67.9 Malignant neoplasm of bladder, unspecified (principal)

== ENCOUNTER → 2019-06-09 | Outpatient (CLI) | payer MEDICARE, OTHER ==
[~2019-06-09] MED LIST changes: -GLIM4TAB3 PO; +GLIM4TAB5 PO
--- NOTE | 2019-06-09 14:14 | REP ---
DUPLEX DOPPLER ULTRASOUND BILATERAL LOWER EXTREMITIES: Real-time ultrasound evaluation and duplex Doppler interrogation of bilateral lower extremity arterial system is performed. ERICA right 1.1 and left 1.1. Femoral to femoral bypass graft is visualized, left to right. The graft is patent with normal internal flow velocities and biphasic and triphasic waveforms, at the right anastomosis peak systolic velocity is 83.8 cm/s, mid aspect 100 cm/s and at the left anastomosis 131 cm/s. Right external iliac artery demonstrates reversal of flow with velocity of 56.8 cm/s. The peak systolic velocity in the left external iliac artery is 100.8 cm/s with triphasic waveform. Mild to moderate diffuse plaquing is seen throughout both lower extremities without evidence of hemodynamically significant stenosis of occlusion. Biphasic and triphasic waveforms are seen diffusely bilaterally. Right Peak Left Peak Systolic Velocity Systolic velocity Common femoral artery 51.5 cm/s 117.6 cm/s Profunda 69.4 cm/s 42.5 cm/s Proximal SFA 101.8 cm/s 85.0 cm/s Mid SFA 72.9 cm/s 92.9 cm/s Distal SFA 76.4 cm/s 64.8 cm/s Popliteal 57.3 cm/s 67.2 cm/s Proximal MARIA M 77.0 cm/s 87.5 cm/s Tibial peroneal trunk 81.2 cm/s 72.7 cm/s Proximal BUILDING RENTAL SUPERINTENDENT 35.5 cm/s 41.0 cm/s Distal BUILDING RENTAL SUPERINTENDENT 110.2 cm/s 64.3 cm/s Distal MARIA M 51.8 cm/s 69.8 cm/s Electronically Signed by Cristóbal Rasmussen MD 06/10/2019 04:42 P
== END ==
LOC: M RAD 10:25
PROVIDERS: ATTEND Surgery Vascular Surgery
DX: I70.213 Atherosclerosis of native arteries of extremities with intermittent claudication, bilateral legs (principal)

== ENCOUNTER → 2019-06-22 | Outpatient (REF) | payer MEDICARE, OTHER | LOC: M SMT 16:41 | PROVIDERS: ATTEND Urology | DX: C67.9 Malignant neoplasm of bladder, unspecified (principal) ==

== ENCOUNTER → 2019-07-06 | Outpatient (CLI) | payer MEDICARE, OTHER ==
--- NOTE | 2019-07-06 14:41 | ECGEPIP ---
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
--- NOTE | 2019-07-06 14:48 | REP ---
REASON FOR EXAM: Preop testing. History of bladder carcinoma. COMPARISON: Multiple, the latest 01/16/2018. Cardiomediastinal silhouette and lung arizmendi are unchanged. There is evidence of basilar fibrotic change status quo. The heart is not enlarged. The pleural angles remain sharp. There is no significant change in the appearance of the imaged osseous structures. Spinal degenerative changes are noted with discogenic changes, status quo. IMPRESSION: No acute cardiopulmonary disease. Stable chronic changes as described above. Electronically Signed by Yonas Stewart DO 07/06/2019 03:04 P
== END ==
LOC: M LAB 12:59
PROVIDERS: ATTEND Urology
DX: Z01.818 Encounter for other preprocedural examination (principal); C67.9 Malignant neoplasm of bladder, unspecified

== ENCOUNTER → 2019-07-21 | Outpatient (CLI) | payer MEDICARE, OTHER ==
[~2019-07-21] MED LIST changes: +AMLO5TAB6 PO; +GLIM2TAB4 PO; +VITA500079 PO
[2019-07-21 10:04] LABS: INR 1.64; PROTHROMBIN TIME 19.2 SECONDS (11.8-14.0)
== END ==
LOC: M WUC 08:21
PROVIDERS: ATTEND Nurse Practitioner Family
DX: Z79.01 Long term (current) use of anticoagulants (principal)

== ENCOUNTER → 2019-07-22 | Day surgery (SDC) | payer MEDICARE, OTHER ==
[~2019-07-22] VITALS: Ht 167.6 cm; Wt 88.0 kg
[~2019-07-22] MED LIST changes: +ACETAMINOPHEN TAB 650MG DOSE (2X325MG) PO PRN; +KETOROLAC 30 MG/ML 1ML VIAL (J1885 PER 15MG) IV PRN; +KETOROLAC 60 MG/2 ML VIAL (J1885 PER 15MG) As Ordered ONE; +LIDOCAINE 1% MDV 20ML VIAL SQ PRN; +LIDOCAINE 2% 100MG/5ML SDV (FOR ANES.) As Ordered ONE; +LR 1,000 ML IV ONE; +LR 1,000 ML IV SCH; +MEPERIDINE INJ 25 MG/ML VIAL (J2175) IV PRN; +METOCLOPRAMIDE INJ 10MG/2ML VIAL (J2765 PER 1) IV PRN; +MIDAZOLAM INJ 2MG/2ML VIAL (J2250 PER 1MG) As Ordered ONE; +ONDANSETRON 4MG/2ML VIAL (J2405 PER 1MG) As Ordered ONE; +ONDANSETRON 4MG/2ML VIAL (J2405 PER 1MG) IV PRN; +ROCURONIUM BROMIDE 50 MG/5 ML VIAL As Ordered ONE; +ceFAZolin SOD 2 GM in IV 1 EA IV ONE; +ePHEDrine SULFATE 25 MG/5 ML(5MG/ML) SYRINGE As Ordered ONE; +fentaNYL 100 MCG/2 ML INJECTION (J3010) IV PRN; +fentaNYL 250 MCG/5 ML INJECTION (J3010) As Ordered ONE; +oxyCODONE 5MG TAB PO PRN; +propofoL 200 MG/20 ML VIAL As Ordered ONE
[2019-07-22 09:20] LABS: INR 1.4; PROTHROMBIN TIME 16.9 SECONDS (11.8-14.0)
--- NOTE | 2019-07-22 11:50 | RO ---
DATE OF PROCEDURE: 07/22/2019 PREPROCEDURE DIAGNOSIS: Bladder cancer. POSTPROCEDURE DIAGNOSIS: Bladder cancer. PROCEDURE: PROCEDURE: Cystoscopy, transurethral resection of bladder tumor (TURBT) (less than 2 cm). SURGEON: Dr. Vasiliy Lynne PLANNING RN: None. ANESTHESIA: General. OPERATIVE INDICATIONS: This is an 79-year-old male with a history of bladder cancer who was found to have recurrent tumor going just inside the bladder neck. He was brought to the operating room today for treatment. DESCRIPTION OF PROCEDURE: The patient was brought to the operating room where general anesthesia was induced. Prophylactic antibiotics was infused. He was then placed in the dorsal lithotomy position and prepped and draped in the usual sterile fashion. At this point, resectoscope was inserted into the urethral meatus and advanced into the bladder. The bladder was thoroughly examined with a 30 and 70 degree lens and the only abnormality seen was a small collection of tumors right inside the bladder neck at approximately 5 o'clock. These tumors were then resected completely using a bipolar loop. Of note, the tumors appeared to be going off a lobe of the prostate, which was going into the bladder. Once the tumors were resected, they were removed from the bladder. The base of the resection was cauterized revealing good hemostasis. At this point, the resectoscope was removed and an #18-Cam[place]onian Del Cid catheter was inserted into the bladder and the balloon was filled with 10 mL of sterile water. This was connected to gravity drainage. This marked conclusion of the procedure. The patient was taken out of dorsal lithotomy position, awakened from anesthesia and transported to the recovery room in stable condition. ESTIMATED BLOOD LOSS: 5 mL. COMPLICATIONS: None. SPECIMENS: Bladder tumors. PLAN: The patient will followup in the clinic in approximately one week for catheter removal and go over pathology results.
[2019-07-22 14:10] VITALS: BP 116/63
== END | disposition home or self-care (01) ==
LOC: M SDC 08:33
PROVIDERS: ATTEND Urology
DX: C67.9 Malignant neoplasm of bladder, unspecified (principal); I10 Essential (primary) hypertension; E78.5 Hyperlipidemia, unspecified; E11.9 Type 2 diabetes mellitus without complications; N40.0 Benign prostatic hyperplasia without lower urinary tract symptoms; Z79.01 Long term (current) use of anticoagulants; Z79.84 Long term (current) use of oral hypoglycemic drugs; Z79.82 Long term (current) use of aspirin; Z79.899 Other long term (current) drug therapy; Z85.46 Personal history of malignant neoplasm of prostate; Z87.891 Personal history of nicotine dependence
CPT/HCPCS: 36415; 52234; 85610; 88305; J0690; J1885; J2250; J2405; J3010

== ENCOUNTER → 2019-10-26 | Outpatient (REF) | payer MEDICARE, OTHER ==
[~2019-10-26] MED LIST changes: -ACETAMINOPHEN TAB 650MG DOSE (2X325MG) PO PRN; +AMLO1TAB24 PO; -AMLO5TAB6 PO; -ASPI81TA85 PO; +ASPI81TA86 PO; -KETOROLAC 30 MG/ML 1ML VIAL (J1885 PER 15MG) IV PRN; -KETOROLAC 60 MG/2 ML VIAL (J1885 PER 15MG) As Ordered ONE; -LIDOCAINE 1% MDV 20ML VIAL SQ PRN; -LIDOCAINE 2% 100MG/5ML SDV (FOR ANES.) As Ordered ONE; -LR 1,000 ML IV ONE; -LR 1,000 ML IV SCH; -MEPERIDINE INJ 25 MG/ML VIAL (J2175) IV PRN; -METOCLOPRAMIDE INJ 10MG/2ML VIAL (J2765 PER 1) IV PRN; -MIDAZOLAM INJ 2MG/2ML VIAL (J2250 PER 1MG) As Ordered ONE; -ONDANSETRON 4MG/2ML VIAL (J2405 PER 1MG) As Ordered ONE; -ONDANSETRON 4MG/2ML VIAL (J2405 PER 1MG) IV PRN; -ROCURONIUM BROMIDE 50 MG/5 ML VIAL As Ordered ONE; -ceFAZolin SOD 2 GM in IV 1 EA IV ONE; -ePHEDrine SULFATE 25 MG/5 ML(5MG/ML) SYRINGE As Ordered ONE; -fentaNYL 100 MCG/2 ML INJECTION (J3010) IV PRN; -fentaNYL 250 MCG/5 ML INJECTION (J3010) As Ordered ONE; -oxyCODONE 5MG TAB PO PRN; -propofoL 200 MG/20 ML VIAL As Ordered ONE
[2019-10-26 18:11] LABS: APPEARANCE, URINE HAZY (CLEAR); BACTERIA, URINE AUTO NEGATIVE (NEGATIVE); BILIRUBIN, URINE AUTO NEGATIVE (NEGATIVE); BLOOD, URINE BLOOD NEGATIVE (NEGATIVE); COLOR, URINE YELLOW (YELLOW); GLUCOSE, URINE (UA) AUTO 1+ mg/dL (NEGATIVE); KETONE, URINE AUTO NEGATIVE (NEGATIVE); LEUKOCYTE ESTERASE, URINE AUTO TRACE (NEGATIVE); MUCUS, URINE SMALL (NEGATIVE); NITRITE, URINE AUTO NEGATIVE (NEGATIVE); PROTEIN, URINE AUTO 3+ mg/dL (NEGATIVE); RBC, URINE AUTO 4 /HPF (0-3); SPECIFIC GRAVITY URINE AUTO 1.018 (1.002-1.035); SQUAMOUS EPITHELIAL CELL UR AU 0 /HPF (0-6); UROBILINOGEN, URINE AUTO 0.2 mg/dL (0.0-2.0); WBC, URINE AUTO 45 /HPF (0-3)
== END ==
LOC: M SMT 16:37
PROVIDERS: ATTEND Nurse Practitioner Family
DX: N39.0 Urinary tract infection, site not specified (principal)

== ENCOUNTER → 2019-12-05 | Outpatient (REF) | payer MEDICARE, OTHER | LOC: M LAB REF 16:52 | PROVIDERS: ATTEND Urology | DX: C67.9 Malignant neoplasm of bladder, unspecified (principal) ==

== ENCOUNTER → 2019-12-08 | Outpatient (CLI) | payer MEDICARE, OTHER ==
--- NOTE | 2020-01-03 12:57 | REP ---
BILATERAL LOWER EXTREMITY ARTERIAL ULTRASOUND CLINICAL: History of peripheral atherosclerotic disease and intermittent claudication. TECHNIQUE: Real-time jasmine scale and color Doppler evaluation of the bilateral lower extremities using linear high frequency transducer. FINDINGS: Moderate mixed partially calcified atheromatous plaquing is noted bilaterally. There is evidence for a yxbk-yp-gzjje femoral-femoral arterial bypass graft, which appears patent and without stenosis. The right lower extremity demonstrates moderate stenosis in the distal anterior tibial artery with subsequent revascularization. The left lower extremity demonstrates occlusion in the distal peroneal artery with subsequent revascularization. IMPRESSION: Moderate atherosclerotic changes noted bilaterally with focal areas of occlusion noted in the distal right anterior tibial artery and left distal peroneal artery, both of which demonstrate subsequent downstream revascularization. The known femoral-femoral bypass graft is patent. Please refer to the worksheet for detailed velocities and phasicity MTDD
== END ==
LOC: M RAD 09:49
PROVIDERS: ATTEND Surgery Vascular Surgery
DX: I70.213 Atherosclerosis of native arteries of extremities with intermittent claudication, bilateral legs (principal); Z95.1 Presence of aortocoronary bypass graft

== ENCOUNTER → 2020-02-17 | Outpatient (REF) | payer MEDICARE, OTHER | LOC: M SMT 17:06 | PROVIDERS: ATTEND Urology | DX: C67.9 Malignant neoplasm of bladder, unspecified (principal) ==

== ENCOUNTER → 2020-05-21 | Outpatient (REF) | payer MEDICARE, OTHER | LOC: M SMT 18:54 | PROVIDERS: ATTEND Urology | DX: C67.9 Malignant neoplasm of bladder, unspecified (principal) ==

== ENCOUNTER → 2020-06-22 | Outpatient (CLI) | payer MEDICARE, OTHER ==
--- NOTE | 2020-06-22 15:12 | REP ---
INDICATION: CLAUDICATION. COMPARISON: 12/08/2019.. TECHNIQUE: Multiple duplex sonographic images of the lower extremity arteries bilaterally. FINDINGS: Left lower extremity: Brachial peak systole: 150 mmHg Dorsalis pedis peak systole: 190 mmHg LEARNING CENTER INSTRUCTOR peak systole: 190 mmHg ERICA: 1.3 CURRICULUM COUNSELOR: 124 velocity, triphasic phasicity Profunda: 131 velocity, biphasic phasicity SFA prox: 116 velocity, biphasic phasicity SFA mid: 113 velocity, biphasic phasicity SFA dist: 130 velocity, biphasic phasicity Pop: 85 velocity, biphasic phasicity MARIA M prox: 99 velocity, biphasic phasicity Tib/P tr: 75 velocity, biphasic phasicity LEARNING CENTER INSTRUCTOR pr: 107 velocity, biphasic phasicity LEARNING CENTER INSTRUCTOR dst: 110 velocity, triphasic phasicity MARIA M dst: 70 velocity, biphasic phasicity Right lower extremity: Brachial peak systole: 150 mmHg Dorsalis pedis peak systole: 140 mmHg LEARNING CENTER INSTRUCTOR peak systole: 150 mmHg ERICA: 0.9 CURRICULUM COUNSELOR: 141 velocity, triphasic phasicity Profunda: 138 velocity, biphasic phasicity SFA prox: 98 velocity, biphasic phasicity SFA mid: 104 velocity, triphasic phasicity SFA dist: 112 velocity, biphasic phasicity Pop: 60 velocity, the biphasic phasicity MARIA M prox: 81 velocity, biphasic phasicity Tib/P tr: 83 velocity, triphasic phasicity LEARNING CENTER INSTRUCTOR pr: 112 velocity, triphasic phasicity LEARNING CENTER INSTRUCTOR dst: 81 velocity, biphasic phasicity MARIA M dst: 59 velocity, biphasic phasicity IMPRESSION: The patient has a left to right fem-fem bypass graft. Peak flow velocity at the anastomosis on the right is 153 centimeters/second and on the left is 268 centimeters/seconds. Peak flow velocity at the mid fem-fem bypass graft is 123 centimeters/second. The bypass graft is patent. No stenosis is identified. There is moderate atheromatous plaque bilaterally. There are triphasic and biphasic waveforms bilaterally. <Electronically signed by Cristóbal Patton > 06/22/20 [id number]
== END ==
LOC: M RAD 12:36
PROVIDERS: ATTEND Surgery Vascular Surgery
DX: I70.213 Atherosclerosis of native arteries of extremities with intermittent claudication, bilateral legs (principal); Z95.828 Presence of other vascular implants and grafts; Z79.01 Long term (current) use of anticoagulants

== ENCOUNTER → 2020-08-13 | Outpatient (REF) | payer MEDICARE, OTHER | LOC: M SMT 13:20 | PROVIDERS: ATTEND Urology | DX: C67.9 Malignant neoplasm of bladder, unspecified (principal) ==

== ENCOUNTER → 2020-12-03 | Outpatient (REF) | payer MEDICARE, OTHER ==
[~2020-12-03] MED LIST changes: +ECOT81TA5 PO; +ELIQ2.5T PO; +FURO20TA2 PO; +NOXI1TAB PO
== END ==
LOC: M SMT 13:49
PROVIDERS: ATTEND Urology
DX: C67.9 Malignant neoplasm of bladder, unspecified (principal)

== ENCOUNTER → 2020-12-12 | Outpatient (CLI) | payer MEDICARE, OTHER | LOC: M LABSMTC 09:11 | PROVIDERS: ATTEND Anesthesiology | DX: Z01.818 Encounter for other preprocedural examination (principal); Z11.52 Encounter for screening for COVID-19 ==

== ENCOUNTER 2020-12-14 09:45 | Day surgery (SDC) | payer MEDICARE, OTHER ==
[~2020-12-14] VITALS: Ht 167.6 cm; Wt 87.1 kg
[~2020-12-14 09:45] MED LIST changes: +BSS IRR 500ML/OMIDRIA 4ML IRR BAG (OR ONLY) IO ONE; +CEFUROXIME 1MG/0.1ML INTRACAMERAL INJ ICAM ONE; +MIDAZOLAM INJ 2MG/2ML VIAL (J2250 PER 1MG) As Ordered ONE; +PROPARACAINE 0.5% OPHTH SOL 15ML OS ONE
[2020-12-14] MEDS ORDERED: LIDOCAINE 1% SDV 5ML VIAL As Ordered ONE (10:21)
[2020-12-14] MEDS ORDERED: DUOVISC (0.50ML VISCOAT/0.85ML PROVISC) OPHTH KIT As Ordered ONE (10:21)
[2020-12-14] MEDS ORDERED: BSS IRR 500ML/OMIDRIA 4ML IRR BAG (OR ONLY) As Ordered ONE (10:22)
[2020-12-14] MEDS ORDERED: CEFUROXIME 1MG/0.1ML INTRACAMERAL INJ As Ordered ONE (10:22)
[2020-12-14] MEDS ORDERED: TRYPAN BLUE 0.06 % 2.25 ML OPHTH SYR (VISIONBLUE) As Ordered ONE (10:40)
[2020-12-14] MEDS: TROPICAMIDE 1% OPHTH SOLN 2ML OS SCH ×3 (11:02→11:21)
[2020-12-14] MEDS: OFLOXACIN 0.3 % (OCUFLOX) OPTH SOL 5ML OS SCH ×3 (11:02→11:21)
[2020-12-14] MEDS: PHENYLEPHRINE 2.5% OPHTH SOL 2ML OS SCH ×3 (11:03→11:21)
[2020-12-14 13:15] VITALS: BP 178/100
--- NOTE | 2020-12-14 15:40 | ROOPDOC ---
[facility] Report Of Operation Report of Operation DATE OF PROCEDURE: 2020 PREPROCEDURE DIAGNOSES: 1. Mature cataract left eye. 2. Floppy Iris Syndrome 3. Abnormal Red Reflex POSTPROCEDURE DIAGNOSES: Same. PROCEDURE PERFORMED: Complex phacoemulsification cataract extraction implantation intraocular lens left eye with pupil stretching using iris hooks and lens capsule staining SURGEON: Judd Mackay MD SENIOR PASTOR: None ANESTHESIA: MAC. ESTIMATED BLOOD LOSS: Approximately 0 cc mL. COMPLICATIONS: None. LENS: 19.5. diopters SPECIMENS REMOVED: None INDICATIONS: Patient experienced decreased vision associated with cataract formation. Slit-lamp examination confirmed the diagnosis. Informed consent was obtained for removal of the cataract and placement of intraocular lens. A poorly dilating pupil was noted. A very poor red reflex was noted. The additional risk factors for surgery were reviewed with the patient. PROCEDURE NOTE: Patient was identified in the holding room and the operative eye was marked. Patient was wheeled spine the OR suite and positioned on the stretcher. The lids lashes and periocular face of the operative eye were prepped with 5% povidone iodine. The lashes were taped with a Tegaderm dressing. A speculum was placed in the operative eye. 1 mm side-port was created. 1% preservative-free lidocaine was injected. Trypan blue was injected. Viscoat was injected. 5 additional 1 mm side-port incisions were made. Griesaber iris hooks were inserted one of the time using the microtying forceps. A 2.6 mm stepped groove clear cornea incision was made temporally. A bent cystotome needle and Utrata forceps were used to fashion a continuous curvilinear capsulorhexis. BSS was used to hydrodissect. The lens was found to rotate freely. The lens was phacoemulsified using a divide and conquer technique. Residual cortex was removed with the I/A. Provisc was injected to expand the capsular bag. The lens was injected using the lens delivery system and positioned with a Amauri hook. All iris hooks were removed using the forceps. Residual viscoelastic was removed with the I/A. BSS was used to hydrate the corneal wound. Antibiotic prophylaxis was injected. The speculum was removed from the eye. A shield was taped over the eye. The patient was sent in excellent condition to the recovery room with a shield. JUDD MACKAY M.D. Dec 14, 2020 15:40
== END 2020-12-14 13:33 | disposition home or self-care (01) ==
LOC: M SDC 09:45
PROVIDERS: ATTEND Ophthalmology
DX: H25.12 Age-related nuclear cataract, left eye (principal); H21.81 Floppy iris syndrome; H57.09 Other anomalies of pupillary function; E11.9 Type 2 diabetes mellitus without complications; E78.00 Pure hypercholesterolemia, unspecified; I10 Essential (primary) hypertension; N40.0 Benign prostatic hyperplasia without lower urinary tract symptoms; Z85.46 Personal history of malignant neoplasm of prostate; Z90.79 Acquired absence of other genital organ(s); Z85.51 Personal history of malignant neoplasm of bladder; I70.213 Atherosclerosis of native arteries of extremities with intermittent claudication, bilateral legs; K21.9 Gastro-esophageal reflux disease without esophagitis; Z79.899 Other long term (current) drug therapy; Z79.82 Long term (current) use of aspirin; Z79.01 Long term (current) use of anticoagulants; Z79.84 Long term (current) use of oral hypoglycemic drugs
CPT/HCPCS: 66982; J1097; J2250; V2632

== ENCOUNTER → 2021-05-27 | Outpatient (CLI) | payer MEDICARE, OTHER ==
[~2021-05-27] MED LIST changes: -BSS IRR 500ML/OMIDRIA 4ML IRR BAG (OR ONLY) IO ONE; -CEFUROXIME 1MG/0.1ML INTRACAMERAL INJ ICAM ONE; +JARD1TAB3 PO; -MIDAZOLAM INJ 2MG/2ML VIAL (J2250 PER 1MG) As Ordered ONE; -PROPARACAINE 0.5% OPHTH SOL 15ML OS ONE
== END ==
LOC: M LABSMTC 11:31
PROVIDERS: ATTEND Anesthesiology
DX: Z01.818 Encounter for other preprocedural examination (principal); Z11.52 Encounter for screening for COVID-19

== ENCOUNTER 2021-05-31 06:21 | Day surgery (SDC) | payer MEDICARE, OTHER ==
[~2021-05-31] VITALS: Ht 167.6 cm; Wt 84.7 kg
[~2021-05-31 06:21] MED LIST changes: +PROPARACAINE 0.5% OPHTH SOL 15ML OD ONE
[2021-05-31] MEDS ORDERED: ACETYLCHOLINE OPHTH SOLN 1% 2ML (MIOCHOL-E) As Ordered ONE (06:49)
[2021-05-31] MEDS ORDERED: LIDOCAINE 1% SDV 5ML VIAL As Ordered ONE (06:49)
[2021-05-31] MEDS ORDERED: CEFUROXIME 1MG/0.1ML INTRACAMERAL INJ As Ordered ONE (06:52)
[2021-05-31] MEDS: PHENYLEPHRINE 2.5% OPHTH SOL 2ML OD SCH ×3 (06:58→07:24)
[2021-05-31] MEDS: OFLOXACIN 0.3 % (OCUFLOX) OPTH SOL 5ML OD SCH ×3 (06:58→07:24)
[2021-05-31] MEDS: TROPICAMIDE 1% OPHTH SOLN 2ML OD SCH ×3 (06:58→07:24)
[2021-05-31] MEDS ORDERED: MIDAZOLAM INJ 2MG/2ML VIAL (J2250 PER 1MG) As Ordered ONE (07:09)
[2021-05-31] MEDS ORDERED: BSS IRR 500ML/OMIDRIA 4ML IRR BAG (OR ONLY) As Ordered ONE (07:16)
[2021-05-31] MEDS ORDERED: PHENYLEPHRINE HCL 10 % OPHTH. SOL 5ML As Ordered ONE (07:51)
[2021-05-31] MEDS ORDERED: PHENYLEPHRINE HCL 10 % OPHTH. SOL 5ML OS SCH (08:20)
[2021-05-31] MEDS ORDERED: PHENYLEPHRINE HCL 10 % OPHTH. SOL 5ML OD SCH (08:20)
[2021-05-31 09:10] VITALS: BP 211/97
== END 2021-05-31 09:48 | disposition home or self-care (01) ==
LOC: M SDC 06:21
PROVIDERS: ATTEND Ophthalmology
DX: H25.21 Age-related cataract, morgagnian type, right eye (principal); H21.81 Floppy iris syndrome; E11.9 Type 2 diabetes mellitus without complications; I10 Essential (primary) hypertension; I70.213 Atherosclerosis of native arteries of extremities with intermittent claudication, bilateral legs; Z90.79 Acquired absence of other genital organ(s); Z85.46 Personal history of malignant neoplasm of prostate; M19.90 Unspecified osteoarthritis, unspecified site; E55.9 Vitamin D deficiency, unspecified; K21.9 Gastro-esophageal reflux disease without esophagitis; Z86.718 Personal history of other venous thrombosis and embolism; Z79.899 Other long term (current) drug therapy; Z79.84 Long term (current) use of oral hypoglycemic drugs; Z79.82 Long term (current) use of aspirin; Z79.01 Long term (current) use of anticoagulants; Z87.891 Personal history of nicotine dependence
CPT/HCPCS: 66982; J1097; J2250; V2632

== ENCOUNTER → 2021-06-10 | Outpatient (REF) | payer MEDICARE, OTHER ==
[~2021-06-10] MED LIST changes: -PROPARACAINE 0.5% OPHTH SOL 15ML OD ONE
== END ==
LOC: M SMT 13:21
PROVIDERS: ATTEND Urology
DX: C67.9 Malignant neoplasm of bladder, unspecified (principal)

== ENCOUNTER → 2021-12-10 | Outpatient (CLI) | payer MEDICARE, OTHER ==
[2021-12-10 13:51] LABS: BASO # 0.1 10^3/uL (0.0-0.2); BASO % 0.9 % (0.0-1.0); EOS # 0.1 10^3/uL (0.0-0.5); EOS % 1.7 % (0.0-3.0); HEMATOCRIT 33.2 % (42.0-52.0); HEMOGLOBIN 10.2 g/dl (13.5-17.5); LYMPH # 0.8 10^3/uL (1.5-5.0); LYMPH % 13.3 % (24.0-44.0); MEAN CORPUSCULAR HGB CONC 30.7 g/dl (32.0-36.5); MEAN CORPUSCULAR VOLUME 84.7 fl (80.0-96.0); MONO # 0.3 10^3/uL (0.0-0.8); MONO % 5.8 % (2.0-8.0); NEUTROPHILS # 4.6 10^3/uL (1.5-8.5); NEUTROPHILS % 77.8 % (36.0-66.0); PLATELET COUNT, AUTOMATED 209 10^3/uL (150-450); RED BLOOD COUNT 3.92 10^6/uL (4.30-6.10); WHITE BLOOD COUNT 5.9 10^3/uL (4.0-10.0)
[2021-12-10 14:32] LABS: ALBUMIN 2.8 GM/DL (3.2-5.2); BILIRUBIN,TOTAL 0.5 MG/DL (0.2-1.0); CALCIUM LEVEL 8.9 MG/DL (8.8-10.2); CREATININE FOR GFR 1.61 MG/DL (0.70-1.30); POTASSIUM SERUM 4.9 MEQ/L (3.5-5.1); TOTAL PROTEIN 5.8 GM/DL (6.4-8.2)
== END ==
LOC: M PLAIMG 10:24
PROVIDERS: ATTEND Nurse Practitioner Family
DX: I50.9 Heart failure, unspecified (principal)

== ENCOUNTER → 2021-12-16 | Outpatient (CLI) | payer MEDICARE, OTHER ==
[2021-12-16 14:38] LABS: BASO % 0.6 % (0.0-1.0); EOS # 0.2 10^3/uL (0.0-0.5); HEMATOCRIT 33.8 % (42.0-52.0); HEMOGLOBIN 10.3 g/dl (13.5-17.5); LYMPH # 0.9 10^3/uL (1.5-5.0); LYMPH % 15.9 % (24.0-44.0); MEAN CORPUSCULAR HEMOGLOBIN 25.6 pg (27.0-33.0); MEAN CORPUSCULAR HGB CONC 30.5 g/dl (32.0-36.5); MEAN CORPUSCULAR VOLUME 83.9 fl (80.0-96.0); MONO # 0.4 10^3/uL (0.0-0.8); MONO % 7.2 % (2.0-8.0); NEUTROPHILS % 72.9 % (36.0-66.0); PLATELET COUNT, AUTOMATED 191 10^3/uL (150-450); RED BLOOD COUNT 4.03 10^6/uL (4.30-6.10); WHITE BLOOD COUNT 5.4 10^3/uL (4.0-10.0)
[2021-12-16 15:13] LABS: ALBUMIN 2.8 GM/DL (3.2-5.2); BILIRUBIN,TOTAL 0.5 MG/DL (0.2-1.0); CALCIUM LEVEL 8.6 MG/DL (8.8-10.2); CREATININE FOR GFR 1.6 MG/DL (0.70-1.30); GLOMERULAR FILTRATION RATE 44.3 (>35); POTASSIUM SERUM 4.5 MEQ/L (3.5-5.1); TOTAL PROTEIN 5.8 GM/DL (6.4-8.2)
[2021-12-16 16:02] LABS: MAU/CREAT RATIO 4755.5 MCG/MG (0.0-30.0)
[2021-12-16 17:36] LABS: HEMOGLOBIN A1c 7.2 %
== END ==
LOC: M PLAIMG 09:31
PROVIDERS: ATTEND Nurse Practitioner Family
DX: I50.9 Heart failure, unspecified (principal)

== ENCOUNTER → 2021-12-17 | Outpatient (REF) | payer MEDICARE, OTHER | LOC: M SMT 17:37 | PROVIDERS: ATTEND Urology | DX: C67.9 Malignant neoplasm of bladder, unspecified (principal) ==

== ENCOUNTER → 2022-02-05 | Outpatient (REF) | payer MEDICARE, OTHER ==
[2022-02-05 19:26] LABS: PERCENT SATURATION 12.2 % (19.7-50.0)
== END ==
LOC: M LAB REF 17:16
PROVIDERS: ATTEND Internal Medicine Nephrology
DX: D50.9 Iron deficiency anemia, unspecified (principal)

== ENCOUNTER → 2022-02-13 | Outpatient (CLI) | payer MEDICARE, OTHER | LOC: M RAD 13:29 | PROVIDERS: ATTEND Internal Medicine Nephrology | DX: R33.8 Other retention of urine (principal); N18.32 Chronic kidney disease, stage 3b ==

== ENCOUNTER → 2022-04-08 | Outpatient (REF) | payer MEDICARE, OTHER ==
[2022-04-08 18:32] LABS: CREATININE, URINE 54.7 MG/DL
[2022-04-08 20:25] LABS: MAU/CREAT RATIO 4930.5 MCG/MG (0.0-30.0)
== END ==
LOC: M LAB REF 17:04
PROVIDERS: ATTEND Internal Medicine Nephrology
DX: E11.22 Type 2 diabetes mellitus with diabetic chronic kidney disease (principal)

== ENCOUNTER → 2022-06-16 | Outpatient (REF) | payer MEDICARE, OTHER | LOC: M SMT 12:48 | PROVIDERS: ATTEND Urology | DX: C67.9 Malignant neoplasm of bladder, unspecified (principal) ==

== ENCOUNTER → 2022-07-07 | Outpatient (CLI) | payer MEDICARE, OTHER | LOC: M PLAIMG 15:14 | PROVIDERS: ATTEND Nurse Practitioner Family | DX: K59.00 Constipation, unspecified (principal) ==

== ENCOUNTER → 2022-08-21 | Outpatient (REF) | payer MEDICARE, OTHER ==
[2022-08-21 18:11] LABS: PERCENT SATURATION 11.3 % (19.7-50.0)
== END ==
LOC: M LAB REF 16:51
PROVIDERS: ATTEND Internal Medicine Nephrology
DX: D50.9 Iron deficiency anemia, unspecified (principal)

== ENCOUNTER 2022-10-17 07:08 | Day surgery (SDC) | payer MEDICARE, OTHER ==
[~2022-10-17] VITALS: Ht 167.6 cm; Wt 82.9 kg
[~2022-10-17 07:08] MED LIST changes: +FERR32TA PO; +FINA-48 PO; +HYDR100T26 PO; +NS 1,000 ML IV ONE; -PROS5TAB PO; +TRAD5TAB PO
[2022-10-17] MEDS ORDERED: LIDOCAINE 2% 100MG/5ML SDV (FOR ANES.) As Ordered ONE (07:28)
[2022-10-17] MEDS ORDERED: propofoL 200 MG/20 ML VIAL As Ordered ONE (07:28)
[2022-10-17 07:46] VITALS: TEMP 96.1
[2022-10-17] MEDS ORDERED: GLYCOPYRROLATE INJ 0.2 MG/ML 2 ML VIAL As Ordered ONE (08:54)
[2022-10-17 09:45] VITALS: BP 141/65; O2SAT 95
== END 2022-10-17 09:54 | disposition home or self-care (01) ==
LOC: M OPP 07:08
PROVIDERS: ATTEND Internal Medicine Gastroenterology
DX: Z12.11 Encounter for screening for malignant neoplasm of colon (principal); D12.3 Benign neoplasm of transverse colon; D12.4 Benign neoplasm of descending colon; D12.5 Benign neoplasm of sigmoid colon; K64.8 Other hemorrhoids; K57.30 Diverticulosis of large intestine without perforation or abscess without bleeding; Z87.891 Personal history of nicotine dependence; Z79.1 Long term (current) use of non-steroidal anti-inflammatories (NSAID); Z79.02 Long term (current) use of antithrombotics/antiplatelets; Z79.82 Long term (current) use of aspirin; Z79.899 Other long term (current) drug therapy

== ENCOUNTER → 2022-10-20 | Outpatient (REF) | payer MEDICARE, OTHER ==
[~2022-10-20] MED LIST changes: -NS 1,000 ML IV ONE
== END ==
LOC: M LAB REF 16:08
PROVIDERS: ATTEND Surgery
DX: L72.3 Sebaceous cyst (principal)

== ENCOUNTER → 2022-11-03 | Outpatient (CLI) | payer MEDICARE, OTHER | LOC: M RAD 12:44 | PROVIDERS: ATTEND Surgery Vascular Surgery | DX: I70.213 Atherosclerosis of native arteries of extremities with intermittent claudication, bilateral legs (principal); Z95.828 Presence of other vascular implants and grafts ==

== ENCOUNTER → 2022-12-22 | Outpatient (REF) | payer MEDICARE, OTHER | LOC: M SMT 13:11 | PROVIDERS: ATTEND Urology | DX: C67.9 Malignant neoplasm of bladder, unspecified (principal) ==

== ENCOUNTER → 2023-02-25 | Outpatient (CLI) | payer MEDICARE, OTHER | LOC: M PLAIMG 15:06 | PROVIDERS: ATTEND Nurse Practitioner Family | DX: R06.02 Shortness of breath (principal); R91.8 Other nonspecific abnormal finding of lung field ==

== ENCOUNTER → 2023-03-16 | Outpatient (REF) | payer MEDICARE, OTHER ==
[2023-03-16 18:53] LABS: PERCENT SATURATION 11.9 % (19.7-50.0)
== END ==
LOC: M LAB REF 16:57
PROVIDERS: ATTEND Internal Medicine Nephrology
DX: D50.9 Iron deficiency anemia, unspecified (principal)

== ENCOUNTER → 2023-06-22 | Outpatient (REF) | payer MEDICARE, OTHER | LOC: M SMT 12:33 | PROVIDERS: ATTEND Urology | DX: C67.9 Malignant neoplasm of bladder, unspecified (principal) ==

== ENCOUNTER → 2023-11-26 | Outpatient (REF) | payer MEDICARE, OTHER ==
[~2023-11-26] MED LIST changes: +RAMI10CA64 PO; -RAMI1CAP26 PO
[2023-11-26 19:04] LABS: PERCENT SATURATION 10.2 % (19.7-50.0)
== END ==
LOC: M LAB REF 17:11
PROVIDERS: ATTEND Internal Medicine Nephrology
DX: D50.9 Iron deficiency anemia, unspecified (principal)

== ENCOUNTER → 2023-12-21 | Outpatient (REF) | payer MEDICARE, OTHER | LOC: M SMT 12:50 | PROVIDERS: ATTEND Urology | DX: C67.9 Malignant neoplasm of bladder, unspecified (principal) ==

== ENCOUNTER → 2024-01-05 | Outpatient (CLI) | payer MEDICARE, OTHER ==
[~2024-01-05] MED LIST changes: +D 50CAP3 PO; +EQ C0.05 PO; +FINA5TAB2 PO; +FURO40TA2 PO; +GABA-1172 PO; +HYDR100T PO; +PANT40TA29 PO; +TAMS1CAP17 PO
[2024-01-05 13:30] LABS: PROSTATIC SPECIFIC AG MONITOR 1.12 NG/ML (< 4.00)
[2024-01-05 13:33] LABS: CALCIUM LEVEL 9.1 MG/DL (8.3-10.6); CREATININE FOR GFR 2.45 MG/DL (0.70-1.30); GLOMERULAR FILTRATION RATE 26.9 (>35); POTASSIUM SERUM 4.3 MMOL/L (3.5-5.1)
[2024-01-05 13:34] LABS: HEMATOCRIT 34.3 % (42.0-52.0); HEMOGLOBIN 10.3 g/dl (13.5-17.5); MEAN CORPUSCULAR HEMOGLOBIN 25.3 pg (27.0-33.0); MEAN CORPUSCULAR VOLUME 84.3 fl (80.0-96.0); PLATELET COUNT, AUTOMATED 139 10^3/uL (150-450); RED BLOOD COUNT 4.07 10^6/uL (4.30-6.10); WHITE BLOOD COUNT 4.6 10^3/uL (4.0-10.0)
== END ==
LOC: M PLAIMG 10:17
PROVIDERS: ATTEND Urology
DX: Z01.818 Encounter for other preprocedural examination (principal); R97.20 Elevated prostate specific antigen [PSA]

== ENCOUNTER → 2024-01-11 | Outpatient (REF) | payer MEDICARE, OTHER ==
[~2024-01-11] MED LIST changes: +CEPH500C PO
[2024-01-11 19:08] LABS: APPEARANCE, URINE CLEAR (CLEAR); BACTERIA, URINE AUTO NEGATIVE (NEGATIVE); BILIRUBIN, URINE AUTO NEGATIVE (NEGATIVE); BLOOD, URINE BLOOD NEGATIVE (NEGATIVE); COLOR, URINE YELLOW (YELLOW); GLUCOSE, URINE (UA) AUTO NEGATIVE (NEGATIVE); KETONE, URINE AUTO NEGATIVE (NEGATIVE); LEUKOCYTE ESTERASE, URINE AUTO 1+ (NEGATIVE); NITRITE, URINE AUTO NEGATIVE (NEGATIVE); PROTEIN, URINE AUTO 1+ mg/dL (NEGATIVE); RBC, URINE AUTO 2 /HPF (0-3); SPECIFIC GRAVITY URINE AUTO 1.008 (1.002-1.035); SQUAMOUS EPITHELIAL CELL UR AU 1 /HPF (0-6); UROBILINOGEN, URINE AUTO 0.2 mg/dL (0.0-2.0); WBC, URINE AUTO 45 /HPF (0-3)
== END ==
LOC: M SMT 17:18
PROVIDERS: ATTEND Urology
DX: Z01.818 Encounter for other preprocedural examination (principal); C67.9 Malignant neoplasm of bladder, unspecified; N39.0 Urinary tract infection, site not specified

== ENCOUNTER 2024-01-13 06:41 | Day surgery (SDC) | payer MEDICARE, OTHER ==
[~2024-01-13] VITALS: Ht 167.6 cm; Wt 86.2 kg
[~2024-01-13 06:41] MED LIST changes: -CEPH500C PO
[2024-01-13] MEDS ORDERED: ONDANSETRON 4MG 2ML VIAL As Ordered ONE (07:00)
[2024-01-13] MEDS ORDERED: ACETAMINOPHEN 1000MG 100ML IV BAG As Ordered ONE (07:00)
[2024-01-13] MEDS ORDERED: SUGAMMADEX SODIUM 500 MG/5 ML VIAL (BRIDION) As Ordered ONE (07:01)
[2024-01-13] MEDS ORDERED: propofoL 200 MG/20 ML VIAL As Ordered ONE (07:01)
[2024-01-13] MEDS ORDERED: ROCURONIUM BROMIDE 50MG/5ML VIAL As Ordered ONE (07:01)
[2024-01-13] MEDS ORDERED: LIDOCAINE 2% 100MG/5ML SDV (FOR ANES.) As Ordered ONE (07:01)
[2024-01-13] MEDS ORDERED: fentaNYL 100 MCG/2 ML INJECTION As Ordered ONE (07:08)
[2024-01-13] MEDS: MITOMYCIN 40MG IN 20ML SWFI SYRINGE INTRAVESIC ONE (07:35)
[2024-01-13] MEDS ORDERED: LR 1,000 ML IV SCH ×2 (07:45→08:45)
[2024-01-13] MEDS: ceFAZolin SOD 2 GM in IV 1 EA IV ONE (07:50)
[2024-01-13] MEDS ORDERED: hydrALAZINE 20MG/ML 1ML VIAL As Ordered ONE (08:08)
[2024-01-13] MEDS ORDERED: oxyCODONE 5MG TAB PO PRN (08:45)
[2024-01-13] MEDS ORDERED: HYDROMORPHONE HCL 0.5 MG/ 0.5 ML SYRINGE IV PRN (08:45)
[2024-01-13] MEDS ORDERED: ONDANSETRON 4MG 2ML VIAL IV PRN (08:45)
[2024-01-13] MEDS ORDERED: fentaNYL 100 MCG/2 ML INJECTION IV PRN (08:45)
[2024-01-13] MEDS ORDERED: CEPH500C PO (09:18)
[2024-01-13] MEDS ORDERED: ACETAMINOPHEN 325 MG TAB PO PRN (11:10)
[2024-01-13 11:29] VITALS: BP 180/88
[2024-01-13] MEDS: hydrALAZINE 20MG/ML 1ML VIAL IV PRN (11:29)
[2024-01-13 13:00] VITALS: BP 158/70; TEMP 97.4; O2SAT 92
== END 2024-01-13 13:20 | disposition home or self-care (01) ==
LOC: M SDC 06:41
PROVIDERS: ATTEND Urology
DX: C67.5 Malignant neoplasm of bladder neck (principal); E11.9 Type 2 diabetes mellitus without complications; G47.30 Sleep apnea, unspecified; Z87.891 Personal history of nicotine dependence; Z79.899 Other long term (current) drug therapy
CPT/HCPCS: 52234; 88305; J0131; J0360; J0690; J1100; J2405; J3010; J9280

== ENCOUNTER → 2024-02-26 | Outpatient (REF) | payer MEDICARE, OTHER ==
[~2024-02-26] MED LIST changes: +CEPH500C PO
[2024-02-26 18:09] LABS: PERCENT SATURATION 8.9 % (19.7-50.0)
[2024-02-26 18:12] LABS: FERRITIN 36.7 NG/ML (10.5-307.3)
== END ==
LOC: M LAB REF 16:49
PROVIDERS: ATTEND Nurse Practitioner Family
DX: D50.9 Iron deficiency anemia, unspecified (principal)

== ENCOUNTER 2024-03-22 08:51 | Outpatient (CLI) | payer MEDICARE, OTHER ==
[~2024-03-22] VITALS: Ht 167.6 cm; Wt 83.4 kg
[~2024-03-22 08:51] MED LIST changes: +ALBUTEROL SULFATE 2.5MG/0.5ML INH NEB SOLN INH PRN; +EPINEPHrine INJ 1 MG/ML 1ML AMP IM PRN; +diphenhydrAMINE 50MG/ML VIAL IV PRN; +methylPREDNISolone 125MG 2ML VIAL IV PRN
[2024-03-22 09:15] VITALS: BP 174/77; O2SAT 95
[2024-03-22] MEDS: IRON SUCROSE 400 MG in NS 250 ML OVER 2.5 HRS IV ONE (09:45)
[2024-03-22 11:00] VITALS: BP 150/81; O2SAT 96
[2024-03-22 12:30] VITALS: BP 167/77; O2SAT 96
== END 2024-03-22 12:35 ==
LOC: M INFU 08:51
PROVIDERS: ATTEND Nurse Practitioner Family
DX: D50.9 Iron deficiency anemia, unspecified (principal)
CPT/HCPCS: 96365; 96366; J1756

== ENCOUNTER 2024-04-08 09:36 | Outpatient (CLI) | payer MEDICARE, OTHER ==
[~2024-04-08] VITALS: Ht 167.6 cm; Wt 86.4 kg
[~2024-04-08 09:36] MED LIST changes: +NS (Normal Saline) 0.9% 1,000 ML IV SCH
[2024-04-08 09:45] VITALS: BP 184/77; O2SAT 90
[2024-04-08] MEDS: IRON SUCROSE 400 MG in NS 250 ML OVER 2.5 HRS IV ONE (10:53)
[2024-04-08 12:00] VITALS: BP 172/79; O2SAT 95
[2024-04-08 13:30] VITALS: BP 210/90; O2SAT 94
[2024-04-08 13:40] VITALS: BP 184/78
[2024-04-08 13:55] VITALS: BP 140/60; O2SAT 93
== END 2024-04-08 13:55 ==
LOC: M INFU 09:36
PROVIDERS: ATTEND Nurse Practitioner Family
DX: D50.9 Iron deficiency anemia, unspecified (principal)
CPT/HCPCS: 96365; 96366; J1756

== ENCOUNTER → 2024-04-19 | Outpatient (REF) | payer MEDICARE, OTHER ==
[~2024-04-19] MED LIST changes: -ALBUTEROL SULFATE 2.5MG/0.5ML INH NEB SOLN INH PRN; -EPINEPHrine INJ 1 MG/ML 1ML AMP IM PRN; -NS (Normal Saline) 0.9% 1,000 ML IV SCH; -diphenhydrAMINE 50MG/ML VIAL IV PRN; -methylPREDNISolone 125MG 2ML VIAL IV PRN
== END ==
LOC: M SMT 12:36
PROVIDERS: ATTEND Urology
DX: C67.9 Malignant neoplasm of bladder, unspecified (principal)

== ENCOUNTER → 2024-05-26 | Outpatient (CLI) | payer MEDICARE, OTHER ==
[2024-05-26 14:40] LABS: BASO % 0.9 % (0.0-1.0); EOS # 0.2 10^3/uL (0.0-0.5); EOS % 3.5 % (0.0-3.0); HEMATOCRIT 34.9 % (42.0-52.0); HEMOGLOBIN 10.7 g/dl (13.5-17.5); LYMPH # 0.8 10^3/uL (1.5-5.0); LYMPH % 17.6 % (24.0-44.0); MEAN CORPUSCULAR HEMOGLOBIN 26.1 pg (27.0-33.0); MEAN CORPUSCULAR HGB CONC 30.7 g/dl (32.0-36.5); MEAN CORPUSCULAR VOLUME 85.1 fl (80.0-96.0); MONO # 0.4 10^3/uL (0.0-0.8); NEUTROPHILS % 68.5 % (36.0-66.0); PLATELET COUNT, AUTOMATED 116 10^3/uL (150-450); WHITE BLOOD COUNT 4.3 10^3/uL (4.0-10.0)
[2024-05-26 14:56] LABS: ALBUMIN 3.4 G/DL (3.2-5.2); ALKALINE PHOSPHATASE 110 U/L (40-129); ALT/SGPT < 9 U/L (7.0-40); AST/SGOT 10 U/L (<34); BILIRUBIN,TOTAL 0.2 MG/DL (0.3-1.2); BLOOD UREA NITROGEN 31 MG/DL (9-23); CALCIUM LEVEL 8.6 MG/DL (8.3-10.6); CARBON DIOXIDE LEVEL 30 MMOL/L (20-31); CHLORIDE LEVEL 103 MMOL/L (98-107); CREATININE FOR GFR 2.12 MG/DL (0.70-1.30); GLOMERULAR FILTRATION RATE 31.8 (>35); GLUCOSE, FASTING 207 MG/DL (74-106); POTASSIUM SERUM 4.4 MMOL/L (3.5-5.1); SODIUM LEVEL 144 MMOL/L (136-145); TOTAL PROTEIN 6.5 G/DL (5.7-8.2)
[2024-05-26 15:42] LABS: HEMOGLOBIN A1c 7.5 % (4.0-6.0)
== END ==
LOC: M PLALAB 10:15
PROVIDERS: ATTEND Nurse Practitioner Family
DX: E11.69 Type 2 diabetes mellitus with other specified complication (principal)

== ENCOUNTER → 2024-05-31 | Outpatient (CLI) | payer MEDICARE, OTHER | LOC: M PLALAB 14:20 | PROVIDERS: ATTEND Nurse Practitioner Family | DX: J84.10 Pulmonary fibrosis, unspecified (principal) ==

== ENCOUNTER 2024-06-20 09:42 | Observation (INO) | payer MEDICARE, OTHER ==
[~2024-06-20] VITALS: Ht 167.6 cm; Wt 85.1 kg
[2024-06-20] MEDS ORDERED: DEXTROSE 50% 50ML SYRINGE As Ordered ONE (10:48)
[2024-06-20] MEDS: DEXTROSE 50% 50ML SYRINGE IV STA (10:53)
[2024-06-20 10:55] LABS: VENOUS BASE EXCESS -3.9 (-2.0-2.0); VENOUS HCO3 21.1 MMOL/L (23.0-27.0); VENOUS PARTIAL PRESSURE CO2 38.3 mmHg (38.0-50.0); VENOUS PARTIAL PRESSURE O2 36.1 mmHg (30.0-50.0); VENOUS PH 7.359 UNITS (7.330-7.430); VENOUS STANDARD HCO3 20.7 MMOL/L; VENOUS TOTAL CO2 22.3 MMOL/L (24.0-28.0)
[2024-06-20 11:00] LABS: BASO % 0.7 % (0.0-1.0); EOS # 0.1 10^3/uL (0.0-0.5); EOS % 1.2 % (0.0-3.0); HEMATOCRIT 31.4 % (42.0-52.0); HEMOGLOBIN 9.8 g/dl (13.5-17.5); LYMPH # 0.6 10^3/uL (1.5-5.0); LYMPH % 10.3 % (24.0-44.0); MEAN CORPUSCULAR HEMOGLOBIN 26.8 pg (27.0-33.0); MEAN CORPUSCULAR HGB CONC 31.2 g/dl (32.0-36.5); MONO # 0.7 10^3/uL (0.0-0.8); MONO % 12.2 % (2.0-8.0); NEUTROPHILS # 4.4 10^3/uL (1.5-8.5); NEUTROPHILS % 75.1 % (36.0-66.0); PLATELET COUNT, AUTOMATED 180 10^3/uL (150-450); RED BLOOD COUNT 3.65 10^6/uL (4.30-6.10); WHITE BLOOD COUNT 5.9 10^3/uL (4.0-10.0)
[2024-06-20 11:13] LABS: INR 1.48; PARTIAL THROMBOPLASTIN TIME 36.9 SECONDS (24.8-34.2); PROTHROMBIN TIME 18.1 SECONDS (12.5-14.5)
[2024-06-20 11:29] LABS: CK-MB VALUE MASS < 1.0 NG/ML (<3.6)
[2024-06-20 11:31] LABS: ETHYL ALCOHOL (ETHANOL) < 0.003 % (0.000-0.010)
[2024-06-20 11:32] LABS: CPK CREATINE PHOSPHOKINASE 106 U/L (46-171); MB/CK RELATIVE INDEX 0.94 (< OR =4)
[2024-06-20 11:33] LABS: ALBUMIN 3.2 G/DL (3.2-5.2); ALKALINE PHOSPHATASE 115 U/L (40-129); ALT/SGPT 10 U/L (7.0-40); AST/SGOT 17 U/L (<34); BILIRUBIN,DIRECT 0.3 MG/DL (<0.4); BILIRUBIN,TOTAL 0.5 MG/DL (0.3-1.2); BLOOD UREA NITROGEN 38 MG/DL (9-23); CALCIUM LEVEL 8.6 MG/DL (8.3-10.6); CARBON DIOXIDE LEVEL 25 MMOL/L (20-31); CHLORIDE LEVEL 107 MMOL/L (98-107); CREATININE FOR GFR 2.71 MG/DL (0.70-1.30); GLOMERULAR FILTRATION RATE 23.9 (>35); GLUCOSE, FASTING 50 MG/DL (74-106); POTASSIUM SERUM 4.1 MMOL/L (3.5-5.1); SALICYLATE LEVEL < 3.0 MG/DL (<30); SODIUM LEVEL 144 MMOL/L (136-145); THYROID STIMULATING HORMONE 1.202 uIU/ML (0.55-4.78); TOTAL PROTEIN 6.7 G/DL (5.7-8.2)
[2024-06-20 12:32] LABS: CK-MB VALUE MASS < 1.0 NG/ML (<3.6)
[2024-06-20 12:39] LABS: CPK CREATINE PHOSPHOKINASE 100 U/L (46-171)
[2024-06-20 13:03] LABS: KETONE, URINE AUTO RFX NEGATIVE (NEGATIVE); LEUKOCYTE ESTERASE UR AUTO RFX NEGATIVE (NEGATIVE); NITRITE, URINE AUTO RFX NEGATIVE (NEGATIVE); RBC, URINE AUTO RFX 3 /HPF (0-3); SQUAM EPITHELIAL CELL UR AURFX 0 /HPF (0-6); WBC, URINE AUTO RFX 4 /HPF (0-3)
[2024-06-20 13:20] LABS: AMPHETAMINES LEVEL URINE NEGATIVE (NEGATIVE); BARBITURATES URINE NEGATIVE (NEGATIVE); BENZODIAZEPINES URINE NEGATIVE (NEGATIVE); CANNABINOIDS URINE NEGATIVE (NEGATIVE); COCAINE METABOLITE URINE NEGATIVE (NEGATIVE); METHADONE URINE NEGATIVE (NEGATIVE); OPIATES URINE NEGATIVE (NEGATIVE); PHENCYCLIDINE URINE NEGATIVE (NEGATIVE)
[2024-06-20] MEDS ORDERED: **hydrALAZINE** 50 MG TAB PO SCH (14:00)
[2024-06-20 14:35] LABS: URIC ACID 11.1 MG/DL (3.7-9.2)
[2024-06-20] MEDS ORDERED: HOME MED LIST COMPLETE! XX SCH (14:50)
[2024-06-20] MEDS ORDERED: GLUCOSE 4 GM CHEW PO PRN (15:25)
[2024-06-20] MEDS ORDERED: GLUCAGON INJ 1MG VIAL SC PRN (15:25)
[2024-06-20 15:38] LABS: C REACTIVE PROTEIN QUANTITATIV 14.16 MG/DL (<1.0); ERYTHROCYTE SEDIMENTATION RATE 83 mm/hr (0-20)
[2024-06-20 15:46] LABS: PROCALCITONIN 0.24 ng/ml
[2024-06-20 16:34] LABS: HEMOGLOBIN A1c 6.5 % (4.0-6.0)
[2024-06-20] MEDS: **hydrALAZINE** 50 MG TAB PO SCH (16:35)
[2024-06-20] MEDS: ERYTHROMYCIN OPHTH OINT OD SCH (16:35)
[2024-06-20] MEDS: NS (Normal Saline) 0.9% 1,000 ML IV ONE (16:37)
[2024-06-20] MEDS: DEXTROSE 50% 50ML SYRINGE IV PRN (19:25)
[2024-06-20] MEDS: INSULIN LISPRO (NovoLOG) PER UNIT SC SCH (19:27)
[2024-06-20 20:23] VITALS: BP 164/68; TEMP 97.9
[2024-06-20] MEDS ORDERED: INSULIN LISPRO (NovoLOG) PER UNIT SC SCH (21:00)
[2024-06-20] MEDS ORDERED: CARVedilol 12.5 MG TAB PO SCH (21:00)
[2024-06-20] MEDS ORDERED: APIXABAN 2.5 MG TAB (ELIQUIS) PO SCH (21:00)
[2024-06-20] MEDS: TAMSULOSIN 0.4 MG CAP PO SCH (22:20)
[2024-06-20] MEDS: PANTOPRAZOLE 40MG TAB (PROTONIX) PO SCH (22:20)
[2024-06-20] MEDS: FINASTERIDE 5MG TAB PO SCH (22:20)
[2024-06-21 00:20] VITALS: O2SAT 91
[2024-06-21 04:00] VITALS: BP 173/69; TEMP 97.9; O2SAT 94
[2024-06-21 05:51] LABS: HEMATOCRIT 29.8 % (42.0-52.0); HEMOGLOBIN 9.4 g/dl (13.5-17.5); MEAN CORPUSCULAR HEMOGLOBIN 26.6 pg (27.0-33.0); MEAN CORPUSCULAR HGB CONC 31.5 g/dl (32.0-36.5); MEAN CORPUSCULAR VOLUME 84.4 fl (80.0-96.0); PLATELET COUNT, AUTOMATED 175 10^3/uL (150-450); RED BLOOD COUNT 3.53 10^6/uL (4.30-6.10); WHITE BLOOD COUNT 5.5 10^3/uL (4.0-10.0)
[2024-06-21] MEDS: D5W/0.9% SODIUM CHLORIDE 1,000 ML IV SCH (05:57)
[2024-06-21 06:13] LABS: CALCIUM LEVEL 8.3 MG/DL (8.3-10.6); CREATININE FOR GFR 2.46 MG/DL (0.70-1.30); GLOMERULAR FILTRATION RATE 26.8 (>35); POTASSIUM SERUM 4.1 MMOL/L (3.5-5.1)
[2024-06-21] MEDS: GABAPENTIN 300 MG CAP PO SCH (08:39)
[2024-06-21] MEDS: ASPIRIN 81MG ENTERIC TABLET PO SCH (08:39)
[2024-06-21] MEDS: FERROUS GLUCONATE 324 MG TAB PO SCH (08:39)
[2024-06-21] MEDS: CARVedilol 6.25 MG TAB PO SCH (08:39)
[2024-06-21 12:00] VITALS: BP 158/59; TEMP 98.1; O2SAT 92
[2024-06-21] MEDS: predniSONE 20 MG TAB PO SCH (14:25)
[2024-06-21] MEDS: CYANOCOBALAMIN 1,000MCG/ML 1ML VIAL IM SCH (14:26)
[2024-06-21 20:00] VITALS: BP 158/62; TEMP 98.1; O2SAT 96
[2024-06-21] MEDS: SIMVASTATIN 40 MG TAB PO SCH (21:51)
[2024-06-22 03:56] VITALS: BP 176/87; TEMP 97.9; O2SAT 93
[2024-06-22 05:44] LABS: HEMATOCRIT 27.8 % (42.0-52.0); HEMOGLOBIN 8.8 g/dl (13.5-17.5); LYMPH # 0.3 10^3/uL (1.5-5.0); LYMPH % 7.8 % (24.0-44.0); MEAN CORPUSCULAR HEMOGLOBIN 26.1 pg (27.0-33.0); MEAN CORPUSCULAR HGB CONC 31.7 g/dl (32.0-36.5); MEAN CORPUSCULAR VOLUME 82.5 fl (80.0-96.0); MONO # 0.1 10^3/uL (0.0-0.8); MONO % 2.9 % (2.0-8.0); NEUTROPHILS # 3.1 10^3/uL (1.5-8.5); NEUTROPHILS % 88.7 % (36.0-66.0); PLATELET COUNT, AUTOMATED 175 10^3/uL (150-450); RED BLOOD COUNT 3.37 10^6/uL (4.30-6.10); WHITE BLOOD COUNT 3.5 10^3/uL (4.0-10.0)
[2024-06-22 06:05] LABS: CALCIUM LEVEL 7.9 MG/DL (8.3-10.6); CREATININE FOR GFR 2.21 MG/DL (0.70-1.30); GLOMERULAR FILTRATION RATE 30.3 (>35); POTASSIUM SERUM 4.5 MMOL/L (3.5-5.1)
[2024-06-22] MEDS: INSULIN LISPRO (NovoLOG) PER UNIT SC SCH (06:40)
[2024-06-22 12:00] VITALS: BP 126/66; TEMP 97.7; O2SAT 92
[2024-06-22] MEDS ORDERED: B-122500 PO (13:19)
[2024-06-22] MEDS ORDERED: PRED10TA2 PO (13:19)
[2024-06-22] MEDS ORDERED: ERYT5OIN25 OU (13:19)
[2024-06-22 13:36] VITALS: BP 166/72
[2024-06-22] MEDS: APIXABAN 2.5 MG TAB (ELIQUIS) PO SCH (13:36)
[2024-06-22] MEDS ORDERED: INSULIN LISPRO (NovoLOG) PER UNIT SC SCH (21:00)
== END 2024-06-22 14:24 | disposition home health service (06) ==
LOC: M ED 09:42 → M ED INP 15:14 → INTOOBSV 15:14 → M MSPAV 20:02
PROVIDERS: ADMIT Internal Medicine; ATTEND Internal Medicine
DX: R53.1 Weakness (principal); R41.0 Disorientation, unspecified; E53.8 Deficiency of other specified B group vitamins; D49.4 Neoplasm of unspecified behavior of bladder; R31.9 Hematuria, unspecified; Z85.51 Personal history of malignant neoplasm of bladder; R44.3 Hallucinations, unspecified; M79.601 Pain in right arm; M25.521 Pain in right elbow; M79.89 Other specified soft tissue disorders; I67.82 Cerebral ischemia; G31.1 Senile degeneration of brain, not elsewhere classified; I11.0 Hypertensive heart disease with heart failure; I50.32 Chronic diastolic (congestive) heart failure; N18.4 Chronic kidney disease, stage 4 (severe); I73.9 Peripheral vascular disease, unspecified; I25.10 Atherosclerotic heart disease of native coronary artery without angina pectoris; E11.649 Type 2 diabetes mellitus with hypoglycemia without coma; G62.9 Polyneuropathy, unspecified; H10.401 Unspecified chronic conjunctivitis, right eye; D63.1 Anemia in chronic kidney disease; C61 Malignant neoplasm of prostate; N40.1 Benign prostatic hyperplasia with lower urinary tract symptoms; K21.9 Gastro-esophageal reflux disease without esophagitis; Z87.891 Personal history of nicotine dependence; Z95.828 Presence of other vascular implants and grafts; Z79.899 Other long term (current) drug therapy; Z79.82 Long term (current) use of aspirin; Z79.01 Long term (current) use of anticoagulants
CPT/HCPCS: 36415; 70450; 70551; 71045; 73060; 73080; 73090; 73110; 76775; 76857; 80047; 80048; 80076; 80143; 80307; 81001; 82077; 82140; 82550; 82553; 82607; 82803; 83036; 83605; 83735; 84145; 84425; 84443; 84484; 84550; 85025; 85027; 85610; 85652; 85730; 86140; 86850; 86900; 86901; 87040; 87486; 87581; 87633; 87798; 93005; 93041; 93306; 93971; 94760; 96360; 96361; 96372; 97116; 97161; 97165; 97530; 97535; 99285; G0378; J1815; J3420; J7512

== ENCOUNTER → 2024-07-18 | Outpatient (REF) | payer MEDICARE, OTHER ==
[~2024-07-18] MED LIST changes: +B-122500 PO; +ERYT5OIN25 OU; +PRED10TA2 PO
== END ==
LOC: M SMT 13:41
PROVIDERS: ATTEND Urology
DX: C67.9 Malignant neoplasm of bladder, unspecified (principal)

== ENCOUNTER → 2024-08-04 | Outpatient (CLI) | payer MEDICARE, OTHER ==
[~2024-08-04] MED LIST changes: -FLOM0.4C39 PO; +TAMS-18 PO
[2024-08-04 13:54] LABS: BASO # 0.1 10^3/uL (0.0-0.2); BASO % 0.9 % (0.0-1.0); EOS # 0.2 10^3/uL (0.0-0.5); EOS % 3.2 % (0.0-3.0); HEMATOCRIT 31.3 % (42.0-52.0); HEMOGLOBIN 9.7 g/dl (13.5-17.5); LYMPH # 0.9 10^3/uL (1.5-5.0); LYMPH % 16.1 % (24.0-44.0); MEAN CORPUSCULAR VOLUME 87.2 fl (80.0-96.0); MONO # 0.5 10^3/uL (0.0-0.8); MONO % 7.9 % (2.0-8.0); NEUTROPHILS # 4.1 10^3/uL (1.5-8.5); NEUTROPHILS % 71.5 % (36.0-66.0); PLATELET COUNT, AUTOMATED 136 10^3/uL (150-450); RED BLOOD COUNT 3.59 10^6/uL (4.30-6.10); WHITE BLOOD COUNT 5.7 10^3/uL (4.0-10.0)
[2024-08-04 14:25] LABS: FOLATE 11.5 NG/ML (>5.4)
== END ==
LOC: M PLALAB 10:14
PROVIDERS: ATTEND Nurse Practitioner Family
DX: D51.9 Vitamin B12 deficiency anemia, unspecified (principal)

== ENCOUNTER → 2024-10-21 | Outpatient (REF) | payer MEDICARE, OTHER | LOC: M SMT 17:03 | PROVIDERS: ATTEND Urology | DX: C67.9 Malignant neoplasm of bladder, unspecified (principal) ==

== ENCOUNTER → 2024-10-26 | Outpatient (REF) | payer MEDICARE, OTHER ==
[2024-10-26 18:43] LABS: IRON (FE) 25.0 UG/DL (65-175); PERCENT SATURATION 8.6 % (19.7-50.0)
== END ==
LOC: M LAB REF 17:49
PROVIDERS: ATTEND Nurse Practitioner Family
DX: D50.9 Iron deficiency anemia, unspecified (principal)

== ENCOUNTER 2024-11-17 11:40 | Outpatient (CLI) | payer MEDICARE, OTHER ==
[~2024-11-17] VITALS: Ht 167.6 cm; Wt 90.9 kg
[2024-11-17 11:40] VITALS: BP 145/67; O2SAT 97
[~2024-11-17 11:40] MED LIST changes: +ALBUTEROL SULFATE 2.5 MG/0.5 ML INH CONCENTRATE NEB SOLN INH PRN; +EPINEPHrine INJ 1 MG/ML 1ML AMP IM PRN; +NS (Normal Saline) 0.9% 1,000 ML IV SCH; +diphenhydrAMINE 50 MG/ML VIAL IV PRN
[2024-11-17] MEDS: IRON SUCROSE 500 MG in NS 250 ML OVER 4 HRS IV ONE (11:57)
[2024-11-17 13:30] VITALS: BP 140/70; O2SAT 97
[2024-11-17 14:00] VITALS: BP 149/80; O2SAT 98
[2024-11-17 15:00] VITALS: BP 151/79; O2SAT 97
[2024-11-17 16:03] VITALS: BP 160/92; O2SAT 97
== END 2024-11-17 16:00 | disposition home or self-care (01) ==
LOC: M INFU 11:40
PROVIDERS: ATTEND Nurse Practitioner Family
DX: D50.9 Iron deficiency anemia, unspecified (principal)
CPT/HCPCS: 96365; 96366; J1756

== ENCOUNTER → 2024-11-25 | Outpatient (CLI) | payer MEDICARE, OTHER ==
[~2024-11-25] MED LIST changes: -ALBUTEROL SULFATE 2.5 MG/0.5 ML INH CONCENTRATE NEB SOLN INH PRN; -EPINEPHrine INJ 1 MG/ML 1ML AMP IM PRN; -NS (Normal Saline) 0.9% 1,000 ML IV SCH; -diphenhydrAMINE 50 MG/ML VIAL IV PRN
[2024-11-25 14:16] LABS: ESTIMATED AVERAGE GLUCOSE 154.0 MG/DL (60-110)
== END ==
LOC: M PLALAB 09:32
PROVIDERS: ATTEND Nurse Practitioner Family
DX: E11.69 Type 2 diabetes mellitus with other specified complication (principal)

== ENCOUNTER 2024-12-01 11:01 | Outpatient (CLI) | payer MEDICARE, OTHER ==
[~2024-12-01] VITALS: Ht 167.6 cm; Wt 84.0 kg
[~2024-12-01 11:01] MED LIST changes: +ALBUTEROL SULFATE 2.5 MG/0.5 ML INH CONCENTRATE NEB SOLN INH PRN; +EPINEPHrine INJ 1 MG/ML 1ML AMP IM PRN; +diphenhydrAMINE 50 MG/ML VIAL IV PRN
[2024-12-01 11:05] VITALS: BP 131/58; O2SAT 95
[2024-12-01] MEDS ORDERED: NS (Normal Saline) 0.9% 1,000 ML IV SCH (11:30)
[2024-12-01] MEDS: IRON SUCROSE 500 MG in NS 250 ML OVER 4 HRS IV ONE (11:39)
[2024-12-01 12:30] VITALS: BP 130/64; O2SAT 97
[2024-12-01 13:30] VITALS: BP 140/77; O2SAT 97
[2024-12-01 14:30] VITALS: BP 151/70; O2SAT 98
[2024-12-01 15:20] VITALS: BP 166/76; O2SAT 97
== END 2024-12-01 15:40 ==
LOC: M INFU 11:01
PROVIDERS: ATTEND Nurse Practitioner Family
DX: D50.9 Iron deficiency anemia, unspecified (principal)
CPT/HCPCS: 96365; 96366; J1756

== ENCOUNTER → 2024-12-27 | Outpatient (CLI) | payer MEDICARE, OTHER ==
[~2024-12-27] MED LIST changes: -ALBUTEROL SULFATE 2.5 MG/0.5 ML INH CONCENTRATE NEB SOLN INH PRN; -EPINEPHrine INJ 1 MG/ML 1ML AMP IM PRN; -diphenhydrAMINE 50 MG/ML VIAL IV PRN
== END ==
LOC: M PLAIMG 11:18
PROVIDERS: ATTEND Nurse Practitioner Family
DX: R05.3 Chronic cough (principal); M25.531 Pain in right wrist; M79.641 Pain in right hand; M19.041 Primary osteoarthritis, right hand; M19.031 Primary osteoarthritis, right wrist

== ENCOUNTER 2025-01-05 11:56 | Emergency (ER) | payer MEDICARE, OTHER ==
[~2025-01-05] VITALS: Ht 167.6 cm; Wt 79.5 kg
[2025-01-05] MEDS ORDERED: GLIM2TAB29 PO (12:16)
[2025-01-05] MEDS ORDERED: ALLO100T PO (12:16)
[2025-01-05 13:18] LABS: BASO # 0.0 10^3/uL (0.0-0.2); BASO % 0.6 % (0.0-1.0); EOS # 0.2 10^3/uL (0.0-0.5); EOS % 3.3 % (0.0-3.0); LYMPH # 0.7 10^3/uL (1.5-5.0); LYMPH % 15.4 % (24.0-44.0); MONO # 0.5 10^3/uL (0.0-0.8); MONO % 9.8 % (2.0-8.0); NEUTROPHILS # 3.4 10^3/uL (1.5-8.5); NEUTROPHILS % 69.9 % (36.0-66.0); PLATELET COUNT, AUTOMATED 151 10^3/uL (150-450)
[2025-01-05 13:26] LABS: KETONE, URINE AUTO RFX NEGATIVE (NEGATIVE); LEUKOCYTE ESTERASE UR AUTO RFX NEGATIVE (NEGATIVE); MUCUS, URINE RFX SMALL (NEGATIVE); NITRITE, URINE AUTO RFX NEGATIVE (NEGATIVE); RBC, URINE AUTO RFX TNTC /HPF (0-3); SQUAM EPITHELIAL CELL UR AURFX 2 /HPF (0-6); WBC, URINE AUTO RFX 125 /HPF (0-3)
[2025-01-05] MEDS ORDERED: FURO40TA2 PO (13:34)
[2025-01-05] MEDS ORDERED: HOME MED LIST COMPLETE! XX SCH (13:35)
[2025-01-05 13:38] LABS: INR 1.3
[2025-01-05 13:52] LABS: ALT/SGPT 12.0 U/L (7.0-40); AST/SGOT 15.0 U/L (<34); CALCIUM LEVEL 8.8 MG/DL (8.3-10.6); CARBON DIOXIDE LEVEL 25.0 MMOL/L (20-31); CHLORIDE LEVEL 102.0 MMOL/L (98-107); CREATININE FOR GFR 2.64 MG/DL (0.70-1.30); GLOMERULAR FILTRATION RATE 23.0 (>35); POTASSIUM SERUM 4.1 MMOL/L (3.5-5.1); SODIUM LEVEL 140.0 MMOL/L (136-145)
[2025-01-05 15:45] VITALS: BP 146/6; TEMP 96.4; O2SAT 95
== END 2025-01-05 15:58 | disposition home or self-care (01) ==
LOC: M ED 11:56
DX: R31.9 Hematuria, unspecified (principal); E11.9 Type 2 diabetes mellitus without complications; I10 Essential (primary) hypertension; E78.5 Hyperlipidemia, unspecified; K21.9 Gastro-esophageal reflux disease without esophagitis; C61 Malignant neoplasm of prostate; C67.9 Malignant neoplasm of bladder, unspecified; F41.9 Anxiety disorder, unspecified; Z79.01 Long term (current) use of anticoagulants; Z79.84 Long term (current) use of oral hypoglycemic drugs; Z79.899 Other long term (current) drug therapy

== ENCOUNTER 2025-01-07 08:16 | Inpatient (IN) | payer MEDICARE ==
[~2025-01-07] VITALS: Ht 167.6 cm; Wt 79.5 kg
[2025-01-07] VITALS (8 sets, daily range): BP systolic 108–162; BP diastolic 54–71; TEMP 97.4–99.4; O2SAT 95–97
[~2025-01-07 08:16] MED LIST changes: +ALLO100T PO; +GLIM2TAB29 PO
[2025-01-07] MEDS: NS 500 ML IV ONE (08:59)
[2025-01-07] MEDS: PANTOPRAZOLE 40MG TAB PO SCH (09:00)
[2025-01-07] MEDS: ASPIRIN 81 MG ENTERIC TABLET PO SCH (09:00)
[2025-01-07 09:10] LABS: BASO # 0.0 10^3/uL (0.0-0.2); BASO % 0.5 % (0.0-1.0); EOS # 0.1 10^3/uL (0.0-0.5); EOS % 1.7 % (0.0-3.0); LYMPH # 0.6 10^3/uL (1.5-5.0); LYMPH % 10.8 % (24.0-44.0); MONO # 0.5 10^3/uL (0.0-0.8); MONO % 8.2 % (2.0-8.0); NEUTROPHILS # 4.5 10^3/uL (1.5-8.5); NEUTROPHILS % 77.9 % (36.0-66.0); PLATELET COUNT, AUTOMATED 136 10^3/uL (150-450)
[2025-01-07 09:17] LABS: INR 1.23
[2025-01-07 09:22] LABS: ETHYL ALCOHOL (ETHANOL) < 0.003 % (0.000-0.010)
[2025-01-07 09:26] LABS: FREE T4 1.16 NG/DL (0.89-1.76)
[2025-01-07 09:32] LABS: AMPHETAMINES LEVEL URINE NEGATIVE (NEGATIVE); BARBITURATES URINE NEGATIVE (NEGATIVE); BENZODIAZEPINES URINE NEGATIVE (NEGATIVE); CANNABINOIDS URINE NEGATIVE (NEGATIVE); COCAINE METABOLITE URINE NEGATIVE (NEGATIVE); METHADONE URINE NEGATIVE (NEGATIVE); OPIATES URINE NEGATIVE (NEGATIVE); PHENCYCLIDINE URINE NEGATIVE (NEGATIVE)
[2025-01-07 09:40] LABS: CALCIUM LEVEL 7.7 MG/DL (8.3-10.6); CARBON DIOXIDE LEVEL 26 MMOL/L (20-31); CHLORIDE LEVEL 104 MMOL/L (98-107); CREATININE FOR GFR 2.99 MG/DL (0.70-1.30); GLOMERULAR FILTRATION RATE 19.8 (>35); MAGNESIUM LEVEL 1.6 MG/DL (1.8-2.4); POTASSIUM SERUM 3.9 MMOL/L (3.5-5.1); SODIUM LEVEL 138 MMOL/L (136-145)
[2025-01-07 10:22] LABS: KETONE, URINE AUTO RFX NEGATIVE (NEGATIVE); LEUKOCYTE ESTERASE UR AUTO RFX 2+ (NEGATIVE); MUCUS, URINE RFX SMALL (NEGATIVE); NITRITE, URINE AUTO RFX NEGATIVE (NEGATIVE); RBC, URINE AUTO RFX TNTC /HPF (0-3); SQUAM EPITHELIAL CELL UR AURFX 1 /HPF (0-6); WBC, URINE AUTO RFX TNTC /HPF (0-3)
[2025-01-07] MEDS: cefTRIAXone SOD 1 GM in DEXTROSE 5% (D5W) ADV/MINI-BAG 50 ML IV ONE (11:12)
[2025-01-07] MEDS ORDERED: GLUCAGON INJ 1 MG VIAL SC PRN (11:25)
[2025-01-07] MEDS ORDERED: MAALOX 30 ML SUSP *UDC PO PRN (11:25)
[2025-01-07] MEDS ORDERED: DEXTROSE 50% 50 ML SYRINGE IV PRN (11:25)
[2025-01-07] MEDS ORDERED: MOM 30 ML SUSPENSION UDC PO PRN (11:25)
[2025-01-07] MEDS ORDERED: GLUCOSE 4 GM CHEW PO PRN (11:25)
[2025-01-07] MEDS ORDERED: HOME MED LIST COMPLETE! XX SCH (11:30)
[2025-01-07] MEDS: INSULIN LISPRO (NovoLOG) PER UNIT SC SCH ×2 (12:00→21:00)
[2025-01-07] MEDS: **hydrALAZINE** 50 MG TAB PO SCH (12:15)
[2025-01-07] MEDS: NS (Normal Saline) 0.9% 1,000 ML IV SCH (13:13)
[2025-01-07] MEDS: MAG SULF 1GM/100ML (MAG RUN) 1 GM in IV 1 EA IV SCH (13:13)
[2025-01-07] MEDS: DOCUSATE SODIUM 100 MG CAPSULE PO SCH (21:00)
[2025-01-07] MEDS: SIMVASTATIN 40 MG TAB PO SCH (21:00)
[2025-01-07] MEDS: FERROUS GLUCONATE 324 MG TAB PO SCH (21:00)
[2025-01-07] MEDS: FINASTERIDE 5 MG TAB PO SCH (21:00)
[2025-01-07] MEDS: GABAPENTIN 300 MG CAP PO SCH (21:00)
[2025-01-08] VITALS (11 sets, daily range): BP systolic 135–164; BP diastolic 62–74; TEMP 98.4–102; O2SAT 94–95
[2025-01-08 07:55] LABS: BASO # 0.0 10^3/uL (0.0-0.2); BASO % 0.4 % (0.0-1.0); EOS # 0.1 10^3/uL (0.0-0.5); EOS % 2.2 % (0.0-3.0); LYMPH # 0.6 10^3/uL (1.5-5.0); LYMPH % 10.6 % (24.0-44.0); MONO # 0.5 10^3/uL (0.0-0.8); MONO % 9.5 % (2.0-8.0); NEUTROPHILS # 4.3 10^3/uL (1.5-8.5); NEUTROPHILS % 76.8 % (36.0-66.0); PLATELET COUNT, AUTOMATED 121 10^3/uL (150-450)
[2025-01-08 08:27] LABS: CALCIUM LEVEL 7.8 MG/DL (8.3-10.6); CARBON DIOXIDE LEVEL 24.0 MMOL/L (20-31); CHLORIDE LEVEL 110.0 MMOL/L (98-107); CREATININE FOR GFR 2.53 MG/DL (0.70-1.30); GLOMERULAR FILTRATION RATE 24.2 (>35); MAGNESIUM LEVEL 2.0 MG/DL (1.8-2.4); POTASSIUM SERUM 4.0 MMOL/L (3.5-5.1); SODIUM LEVEL 140.0 MMOL/L (136-145)
[2025-01-08] MEDS: VITAMIN D 1,000 INTERNATIONAL UNITS TABLET PO SCH (08:45)
[2025-01-08] MEDS: cefTRIAXone SOD 1 GM in DEXTROSE 5% (D5W) ADV/MINI-BAG 50 ML IV SCH (10:31)
[2025-01-08] MEDS: ACETAMINOPHEN 325 MG TAB PO PRN (11:40)
[2025-01-08] MEDS ORDERED: CEFEPIME HCL 2 GM in DEXTROSE 5% (D5W) ADV/MINI-BAG 50 ML IV SCH (11:55)
[2025-01-08] MEDS: NS (Normal Saline) 0.9% 1,000 ML IV ONE (12:13)
[2025-01-08] MEDS: CEFEPIME HCL 1 GM in DEXTROSE 5% (D5W) ADV/MINI-BAG 50 ML IV SCH (13:22)
[2025-01-08] MEDS ORDERED: PIPERACILLIN/TAZOBACTAM SOD 3.375 GM in DEXTROSE 5% (D5W) ADV/MINI-BAG 50 ML IV SCH (15:35)
[2025-01-08 16:36] LABS: C REACTIVE PROTEIN QUANTITATIV 5.24 MG/DL (<1.0)
[2025-01-08] MEDS: predniSONE 20 MG TAB PO SCH (18:40)
[2025-01-08] MEDS: PIPERACILLIN/TAZOBACTAM SOD 2.25 GM in DEXTROSE 5% (D5W) ADV/MINI-BAG 50 ML IV SCH (20:26)
[2025-01-09] VITALS: TEMP 98.2; O2SAT 93
[2025-01-09 04:00] VITALS: BP 146/68; O2SAT 95
[2025-01-09 05:41] LABS: BASO # 0.0 10^3/uL (0.0-0.2); BASO % 0.5 % (0.0-1.0); EOS # 0.0 10^3/uL (0.0-0.5); EOS % 0.0 % (0.0-3.0); LYMPH # 0.3 10^3/uL (1.5-5.0); LYMPH % 6.9 % (24.0-44.0); MONO # 0.1 10^3/uL (0.0-0.8); MONO % 2.1 % (2.0-8.0); NEUTROPHILS # 3.9 10^3/uL (1.5-8.5); NEUTROPHILS % 89.8 % (36.0-66.0); PLATELET COUNT, AUTOMATED 133 10^3/uL (150-450)
[2025-01-09 06:04] LABS: CALCIUM LEVEL 7.7 MG/DL (8.3-10.6); CARBON DIOXIDE LEVEL 22.0 MMOL/L (20-31); CHLORIDE LEVEL 111.0 MMOL/L (98-107); CREATININE FOR GFR 2.14 MG/DL (0.70-1.30); GLOMERULAR FILTRATION RATE 29.6 (>35); MAGNESIUM LEVEL 1.9 MG/DL (1.8-2.4); POTASSIUM SERUM 4.4 MMOL/L (3.5-5.1); SODIUM LEVEL 145.0 MMOL/L (136-145)
[2025-01-09 06:16] LABS: C REACTIVE PROTEIN QUANTITATIV 11.33 MG/DL (<1.0)
[2025-01-09 08:00] VITALS: BP_SYST 136; BP_SYST 142; BP_SYST 146; BP_SYST 147; BP_DIAS 60; BP_DIAS 62; BP_DIAS 63; BP_DIAS 70; TEMP 98.4; O2SAT 94
[2025-01-09 10:30] LABS: BASO # 0.0 10^3/uL (0.0-0.2); BASO % 0.2 % (0.0-1.0); EOS # 0.0 10^3/uL (0.0-0.5); EOS % 0.0 % (0.0-3.0); LYMPH # 0.3 10^3/uL (1.5-5.0); LYMPH % 6.4 % (24.0-44.0); MONO # 0.2 10^3/uL (0.0-0.8); MONO % 3.1 % (2.0-8.0); NEUTROPHILS # 4.4 10^3/uL (1.5-8.5); NEUTROPHILS % 89.7 % (36.0-66.0); PLATELET COUNT, AUTOMATED 122 10^3/uL (150-450)
[2025-01-09] MEDS: DOXYCYCLINE HYCLATE 100 MG TABLET PO SCH (11:59)
[2025-01-09 12:00] VITALS: BP 167/73; TEMP 97.8; O2SAT 96
[2025-01-09] MEDS: guaiFENesin ER TABLET 600 MG TAB PO SCH (13:39)
[2025-01-09 16:00] VITALS: BP 170/78; TEMP 98.1; O2SAT 98
[2025-01-09] MEDS: amLODIPine 5 MG TAB PO SCH (17:05)
[2025-01-09 20:08] VITALS: BP 168/71; TEMP 98; O2SAT 97
[2025-01-10] VITALS (10 sets, daily range): BP systolic 133–177; BP diastolic 58–79; TEMP 97.7–98.4; O2SAT 95–99
[2025-01-10 06:06] LABS: BASO # 0.0 10^3/uL (0.0-0.2); BASO % 0.2 % (0.0-1.0); EOS # 0.0 10^3/uL (0.0-0.5); EOS % 0.0 % (0.0-3.0); LYMPH # 0.5 10^3/uL (1.5-5.0); LYMPH % 9.2 % (24.0-44.0); MONO # 0.3 10^3/uL (0.0-0.8); MONO % 5.0 % (2.0-8.0); NEUTROPHILS # 4.8 10^3/uL (1.5-8.5); NEUTROPHILS % 84.7 % (36.0-66.0); PLATELET COUNT, AUTOMATED 155 10^3/uL (150-450)
[2025-01-10 06:33] LABS: C REACTIVE PROTEIN QUANTITATIV 8.05 MG/DL (<1.0); CALCIUM LEVEL 8.2 MG/DL (8.3-10.6); CARBON DIOXIDE LEVEL 19.0 MMOL/L (20-31); CHLORIDE LEVEL 112.0 MMOL/L (98-107); CREATININE FOR GFR 2.12 MG/DL (0.70-1.30); GLOMERULAR FILTRATION RATE 29.9 (>35); MAGNESIUM LEVEL 2.0 MG/DL (1.8-2.4); POTASSIUM SERUM 4.3 MMOL/L (3.5-5.1); SODIUM LEVEL 147.0 MMOL/L (136-145)
[2025-01-10] MEDS: predniSONE 20 MG TAB PO SCH (08:25)
[2025-01-10] MEDS: predniSONE 20 MG TAB PO ONE (11:21)
[2025-01-10 14:41] LABS: CALCIUM LEVEL 8.3 MG/DL (8.3-10.6); CARBON DIOXIDE LEVEL 22.0 MMOL/L (20-31); CHLORIDE LEVEL 110.0 MMOL/L (98-107); CREATININE FOR GFR 2.08 MG/DL (0.70-1.30); GLOMERULAR FILTRATION RATE 30.6 (>35); POTASSIUM SERUM 4.3 MMOL/L (3.5-5.1); SODIUM LEVEL 145.0 MMOL/L (136-145)
[2025-01-11 00:15] VITALS: BP 177/77; TEMP 98.4; O2SAT 95
[2025-01-11 04:27] VITALS: BP 182/84; TEMP 98; O2SAT 96
[2025-01-11 05:46] LABS: BASO # 0.0 10^3/uL (0.0-0.2); BASO % 0.0 % (0.0-1.0); EOS # 0.0 10^3/uL (0.0-0.5); EOS % 0.2 % (0.0-3.0); LYMPH # 0.5 10^3/uL (1.5-5.0); LYMPH % 8.6 % (24.0-44.0); MONO # 0.3 10^3/uL (0.0-0.8); MONO % 4.6 % (2.0-8.0); NEUTROPHILS # 4.6 10^3/uL (1.5-8.5); NEUTROPHILS % 85.9 % (36.0-66.0); PLATELET COUNT, AUTOMATED 159 10^3/uL (150-450)
[2025-01-11 06:18] LABS: C REACTIVE PROTEIN QUANTITATIV 4.1 MG/DL (<1.0); CALCIUM LEVEL 8.2 MG/DL (8.3-10.6); CARBON DIOXIDE LEVEL 21.0 MMOL/L (20-31); CHLORIDE LEVEL 112.0 MMOL/L (98-107); CREATININE FOR GFR 2.03 MG/DL (0.70-1.30); GLOMERULAR FILTRATION RATE 31.5 (>35); MAGNESIUM LEVEL 1.8 MG/DL (1.8-2.4); POTASSIUM SERUM 4.3 MMOL/L (3.5-5.1); SODIUM LEVEL 144.0 MMOL/L (136-145)
[2025-01-11 08:00] VITALS: BP 135/61; TEMP 97.9; O2SAT 97
[2025-01-11] MEDS: predniSONE 20 MG TAB PO SCH (08:14)
[2025-01-11 08:15] VITALS: BP 135/81
[2025-01-11] MEDS: amLODIPine 10 MG TAB PO SCH (08:16)
[2025-01-11] MEDS ORDERED: LEVO1TAB40 PO (11:28)
[2025-01-11] MEDS ORDERED: AMLO1TAB25 PO (11:28)
[2025-01-11] MEDS ORDERED: FURO40TA2 PO (11:28)
[2025-01-11] MEDS ORDERED: PRED20TA PO (11:28)
[2025-01-11] MEDS ORDERED: PROBCAP14 PO (11:46)
[2025-01-11 12:00] VITALS: BP 171/69; TEMP 98; O2SAT 97
== END 2025-01-11 13:43 | disposition home or self-care (01) | DRG 312 ==
LOC: EDBD 08:16 → M ED 08:16 → M ED INP 11:21 → M ICU 12:45
PROVIDERS: ADMIT Internal Medicine; ATTEND Student in an Organized Health Care Education/Training Program
DX: I95.1 Orthostatic hypotension (principal); J18.9 Pneumonia, unspecified organism; N17.9 Acute kidney failure, unspecified; N18.4 Chronic kidney disease, stage 4 (severe); N39.0 Urinary tract infection, site not specified; I50.32 Chronic diastolic (congestive) heart failure; I13.0 Hypertensive heart and chronic kidney disease with heart failure and stage 1 through stage 4 chronic kidney disease, or unspecified chronic kidney disease; E87.20 Acidosis, unspecified; E11.51 Type 2 diabetes mellitus with diabetic peripheral angiopathy without gangrene; N40.0 Benign prostatic hyperplasia without lower urinary tract symptoms; D69.6 Thrombocytopenia, unspecified; E11.22 Type 2 diabetes mellitus with diabetic chronic kidney disease; E83.42 Hypomagnesemia; E78.5 Hyperlipidemia, unspecified; K21.9 Gastro-esophageal reflux disease without esophagitis; B96.20 Unspecified Escherichia coli [E. coli] as the cause of diseases classified elsewhere; E11.40 Type 2 diabetes mellitus with diabetic neuropathy, unspecified; M10.031 Idiopathic gout, right wrist; Z66 Do not resuscitate; Z95.820 Peripheral vascular angioplasty status with implants and grafts; Z85.46 Personal history of malignant neoplasm of prostate; Z85.59 Personal history of malignant neoplasm of other urinary tract organ; Z79.01 Long term (current) use of anticoagulants; Z79.84 Long term (current) use of oral hypoglycemic drugs; Z79.899 Other long term (current) drug therapy

== ENCOUNTER 2025-01-14 18:16 | Observation (INO) | payer MEDICARE ==
[~2025-01-14] VITALS: Ht 175.3 cm; Wt 101.6 kg
[~2025-01-14 18:16] MED LIST changes: +AMLO1TAB25 PO; +LEVO1TAB40 PO; +PRED20TA PO; +PROBCAP14 PO
[2025-01-14 18:29] VITALS: BP 130/58; O2SAT 97
[2025-01-14] MEDS ORDERED: MORPHINE 4 MG/ML 1 ML VIAL IV PRN ×2 (20:45→20:55)
[2025-01-14] MEDS ORDERED: SCOPOLAMINE 1MG TRANSDERMAL PATCH TOP PRN ×2 (20:45→20:55)
[2025-01-14] MEDS ORDERED: HYOSCYAMINE SULFATE 0.125 MG SUBL TABLET PO PRN ×2 (20:45→20:55)
[2025-01-14] MEDS ORDERED: LORazepam 1 MG TAB PO PRN ×2 (20:45→20:55)
[2025-01-14] MEDS ORDERED: HOME MED LIST COMPLETE! XX SCH (22:00)
[2025-01-14] MEDS: SCOPOLAMINE 1MG TRANSDERMAL PATCH TOP SCH (22:47)
== END 2025-01-14 23:09 | disposition expired ==
LOC: M ED 18:16 → M ED INP 18:17 → M MSPAV 23:05
PROVIDERS: ADMIT Student in an Organized Health Care Education/Training Program; ATTEND Student in an Organized Health Care Education/Training Program
DX: Z51.5 Encounter for palliative care (principal); I46.9 Cardiac arrest, cause unspecified; Z66 Do not resuscitate; I73.9 Peripheral vascular disease, unspecified; I12.9 Hypertensive chronic kidney disease with stage 1 through stage 4 chronic kidney disease, or unspecified chronic kidney disease; E11.22 Type 2 diabetes mellitus with diabetic chronic kidney disease; E11.51 Type 2 diabetes mellitus with diabetic peripheral angiopathy without gangrene; K21.9 Gastro-esophageal reflux disease without esophagitis; E78.5 Hyperlipidemia, unspecified; N18.4 Chronic kidney disease, stage 4 (severe); C61 Malignant neoplasm of prostate; Z85.51 Personal history of malignant neoplasm of bladder; Z95.828 Presence of other vascular implants and grafts; Z79.01 Long term (current) use of anticoagulants; Z79.82 Long term (current) use of aspirin; Z79.84 Long term (current) use of oral hypoglycemic drugs; Z79.52 Long term (current) use of systemic steroids; Z79.899 Other long term (current) drug therapy
CPT/HCPCS: 80047; 99284; G0378